=== PATIENT | male | born 1955 | race Caucasian/White ===

== ENCOUNTER 2018-11-29 17:14 | Inpatient (IN) | payer OTHER ==
[~2018-11-29] VITALS: Ht 172.7 cm; Wt 70.8 kg
[2018-11-29 16:55] VITALS: BP 115/61; PULSE 62; RESP 18
[2018-11-29] MEDS ORDERED: MIDODRINE 5 MG TAB PO ONE (17:40)
[2018-11-29] MEDS ORDERED: MAGNESIUM HYDROXIDE 30ML CUP PO PRN (18:30)
[2018-11-29] MEDS ORDERED: ACETAMINOPHEN 325 MG TAB PO PRN (18:30)
[2018-11-29] MEDS ORDERED: LACTULOSE 30ML CUP PO PRN (18:30)
[2018-11-29] MEDS ORDERED: BISACODYL 10 MG SUPP PR PRN (18:30)
[2018-11-29] MEDS ORDERED: ALBUTEROL HFA 8 GM INHALER INH PRN (19:00)
[2018-11-29 20:40] VITALS: BP 81/44; PULSE 62; RESP 18
[2018-11-29 20:45] VITALS: BP 75/32; PULSE 64
[2018-11-29 20:46] VITALS: BP 75/36; PULSE 65
[2018-11-29] MEDS: ATORVASTATIN 20 MG TAB PO SCH (20:55)
[2018-11-29 20:56] VITALS: BP 82/57; PULSE 63
[2018-11-29] MEDS: SENNA TAB PO SCH (21:00)
[2018-11-29] MEDS: DOCUSATE SODIUM 100 MG CAP PO SCH (21:00)
[2018-11-29] MEDS ORDERED: SOD CHLORIDE 0.9% 250 ML IV ONE (21:30)
[2018-11-29 22:40] VITALS: BP 114/57; PULSE 64
--- NOTE | 2018-11-29 22:58 | HP ---
Date/Time of Note Date/Time of Note DATE: 11/29/18 TIME: 22:56 Assessment/Plan VTE Prophylaxis SCD applied (from Nsg): Yes Pharmacological prophylaxis: other Lines/Catheters IV Catheter Type (from Nrsg): Peripheral IV Assessment/Plan Hospital Course Assessment and plan: 63-year-old male past medical history recent stroke on November 24, 2018, results asthma, subsequent hypotension who was transferred over to acute rehab facility after being diagnosed with the stroke. 1. Status post CVA: Again he has subsequent right-sided weakness symptoms. Status post stent and thrombectomy performed for left ICA and MCA blockage. -For now continue medications including aspirin and Plavix -Continue rehab as coordinated by the acute rehab team including any physical therapy, occupational therapy, and other 2. Asthma: No present issues DuoNebs as needed 3. Hypotension: This appeared to occur after the stroke 3 days ago -Monitor for now, continue Midodrin HPI/ROS Admit Date/Time Admit Date/Time Nov 29, 2018 at 17:21 Hx of Present Illness 63-year-old male past medical history recent stroke on November 24, 2018, results asthma, subsequent hypotension who was transferred over to acute rehab facility after being diagnosed with a stroke as mentioned above. Patient has subsequent right-sided weakness symptoms right facial droop and upon admission on November 24 at the outside hospital had status post stent and thrombectomy performed for blockage found in the left ICA and MCA. Presently denies any upper or lower GI bleeding, nausea vomiting, fever chills, diarrhea constipation, chest pain or shortness of breath. PMH/Family/Social Past Medical History Medications Current Medications Docusate Sodium (Colace) 100 mg BID PO ; Start 11/29/18 at 21:00 Senna (Senokot) 1 tab HS PO ; Start 11/29/18 at 21:00 Magnesium Hydroxide (Milk Of Mag) 30 ml BID PRN PO CONSTIPATION; Start 11/29/18 at 18:30 Lactulose (Enulose) 20 gm DAILY PRN PO CONSTIPATION; Start 11/29/18 at 18:30 Bisacodyl (Dulcolax Supp) 10 mg DAILY PRN [place] CONSTIPATION; Start 11/29/18 at 18:30 Acetaminophen (Tylenol Tab) 650 mg Q4H PRN PO PAIN; Start 11/29/18 at 18:30 Aspirin (Aspirin) 325 mg DAILY PO ; Start 11/30/18 at 09:00 Atorvastatin Calcium (Lipitor) 40 mg HS PO Last administered on 11/29/18at 20:55; Admin Dose 40 MG; Start 11/29/18 at 21:00 Clopidogrel Bisulfate (plaVIX) 75 mg DAILY PO ; Start 11/30/18 at 09:00 Midodrine (Proamatine) 10 mg TID@09,13,17 PO ; Start 11/30/18 at 09:00 Albuterol (Ventolin Hfa) 1 puff ONCE PRN INH WHEEZING; Start 11/29/18 at 19:00 Coded Allergies: ibuprofen (Verified Allergy, Unknown, 11/29/18) Exam/Review of Systems Vital Signs Vitals Vital Signs Date Temp Pulse Resp B/P (MAP) Pulse Ox O2 O2 Flow FiO2 Time Delivery Rate 11/29/18 98.5 62 18 115/61 96 Room Air 16:55 (79) Exam Exam Gen: Lying in bed, no acute distress Head: Atraumatic. Eyes: Normal Conjunctiva. ENT: Normal External Ears, Nose and Mouth. Neck: Full range of motion. No meningismus. Resp: Clear to auscultation bilaterally. Cardio: Regular rate and rhythm. Abd: Soft, nondistended, normal bowel sounds, non tender. Ext: No lower extremity edema bilaterally Neuro: Some right-sided weakness CALISTA ADEN Nov 29, 2018 22:58
[2018-11-30 02:00] VITALS: BP 113/56; PULSE 59; RESP 18
[2018-11-30] MEDS ORDERED: ALBUTEROL/IPRATROPIUM (NEB) 3 ML AMP HHN PRN (06:30)
[2018-11-30 08:00] VITALS: BP 99/66; PULSE 73; RESP 20
[2018-11-30] MEDS: ASPIRIN 325 MG TAB PO SCH (09:20)
[2018-11-30] MEDS: DOCUSATE SODIUM 100 MG CAP PO SCH ×2 (09:21→21:00)
[2018-11-30] MEDS: MIDODRINE 5 MG TAB PO SCH ×3 (09:21→16:50)
[2018-11-30] MEDS: CLOPIDOGREL 75 MG TAB PO SCH (09:21)
--- NOTE | 2018-11-30 12:51 | CONS ---
DATE OF ADMISSION: 11/29/2018 DATE OF CONSULTATION: 11/30/2018 REHABILITATION POST-ADMISSION PHYSICIAN EVALUATION REHABILITATION IMPAIRMENT CATEGORY: Left MCA infarct cerebrovascular accident with right-sided weakn ess. ACTIVE COMORBIDITIES: 1. Hypotension. 2. Sinus bradycardia. 3. Left carotid stenosis. 4. Asthma. 5. Dysphagia. 6. Impairments in self-care, mobility and cognition. HISTORY OF PRESENT ILLNESS: The patient is a pleasant 63-year-old right-handed gentleman who present ed to [facility] with right-sided weakness. The patient was noted to have a left ICA stenos is and MCA occlusion, but was outside of the tPA window. The patient did undergo attempted thrombect reyes. The patient did receive stent placement. The patient's hospital course has been notable for hy potension, sinus bradycardia, and bibasilar atelectasis. The patient was also noted to have signific ant dysphagia. The patient has been placed on midodrine and had been followed closely by cardiology. The patient has been cleared to transfer to the rehabilitation unit for comprehensive interdiscipli nary rehab care. FUNCTIONAL HISTORY: Prior to recent events, he was independent in self-care tasks and mobility. Cur rently, he requires maximal to moderate assist for self-care and mobility tasks. I have reviewed the preadmission screen and patient's current functional status is consistent with the preadmission scre en. FAMILY AND SOCIAL HISTORY: The patient reports living at home with significant other and hopes to re turn there upon discharge. PAST MEDICAL HISTORY: 1. Asthma. 2. History of inguinal hernia. 3. Tonsillectomy. CURRENT MEDICATIONS: 1. Aspirin 325 mg p.o. daily. 2. Atorvastatin 20 mg p.o. daily. 3. Plavix 75 mg p.o. daily. 4. Midodrine 10 mg p.o. t.i.d. 5. Albuterol inhaler. ALLERGIES: IBUPROFEN. PHYSICAL EXAMINATION: VITAL SIGNS: He is currently afebrile with stable vital signs. HEENT: The extraocular motions appear intact. Oropharynx is clear. Patient with decreased nasolabi al fold. LUNGS: Clear anteriorly. CARDIAC: S1, S2. ABDOMEN: Soft, nontender, positive bowel sounds. NEUROLOGIC: He is awake and alert. He is oriented to person and hospital. He will follow simple 1- step commands. He has impaired short-term memory. He demonstrates good strength in the left upper a nd lower extremity. He has 3- strength in the right upper extremity. He has antigravity strength in the right lower extremity. PLAN: The patient has been admitted for comprehensive interdisciplinary acute rehab and is anticipat ed to tolerate 3 hours of daily therapy in divided doses for at least 5/7 days a week. The treatment plan will include: 1. Physical therapy to focus on bed mobility, transfers, and household ambulation with the goal of h aving the patient reach a standby assist level. 2. Occupational therapy to focus on hygiene, grooming, dressing, bathing, and toileting activities w ith the goal of having the patient reach a standby assist level. 3. Rehabilitation nursing for carryover of therapeutic interventions, the goal of continent of bowel and bladder, the goal of patient education with regard to the aforementioned issues. 4. Neuropsychology for full cognitive assessment and oversight of cognitive program. 5. Speech therapy for full cognitive assessment and retraining in addition to dysphagia assessment a nd training with the goal of having the patient return to baseline cognition and meet nutritional nee ds by mouth on regular diet. ESTIMATED LENGTH OF STAY: 14 days. DISPOSITION GOAL: Home with significant other. REHABILITATION BARRIER: Weakness. INTERVENTION FOR BARRIER: Interdisciplinary approach. As a board certified clinical rehabilitation liaison in physical medicine and rehabilitation, I attest that this patient qualifies for an interdisciplinary acute rehabilitation unit stay and is best managed a t this level of care. The patient is anticipated to make reasonable goals in a reasonable period of time. After a thorough review of his medical records and a full physical examination. I do believe that this patient meets criteria for acute rehabilitation unit level of care under [facility] guidelines. Dictated By: MICHAEL JENNINGS/LATOYA Conf#: [id number] DID#: [id number] CC: LISANDRO JUNG MD;*EndCC*
--- NOTE | 2018-11-30 13:37 | PN ---
Date/Time of Note Date/Time of Note DATE: 11/30/18 TIME: 13:36 Assessment/Plan VTE Prophylaxis Risk score (from [facility])>0 risk: 3 SCD applied (from [facility]): Yes Pharmacological prophylaxis: heparin Lines/Catheters IV Catheter Type (from [facility]): Peripheral IV Urinary Cath still in place: No Assessment/Plan Problems: (1) Cerebrovascular accident involving left middle cerebral artery territory Status: Acute Comment: Stable at this time and progressing with rehabilitation. Regarding his lower blood pressure I doubt that there is any reason for pill check to make sure we do not have adrenal insufficiency (2) Hyperlipidemia Status: Chronic Comment: On a statin drug at this time. Qualifiers: Hyperlipidemia type: pure hypercholesterolemia Qualified Codes: E78.00 - Pure hypercholesterolemia, unspecified (3) Asthma, moderate persistent Status: Chronic Comment: Noted. Qualifiers: Asthma complication type: uncomplicated Qualified Codes: J45.40 - Moderate persistent asthma, uncomplicated Result Diagram: 11/30/18 0707 11/30/18 0707 Results 24hrs Laboratory Tests Test 11/29/18 17:45 11/30/18 07:07 Urine Color YELLOW Urine Clarity CLEAR Urine pH 7.0 Urine Specific [place] 1.010 Urine Ketones NEGATIVE Urine Nitrite NEGATIVE Urine Bilirubin NEGATIVE Urine Urobilinogen NEGATIVE Urine Leukocyte Esterase NEGATIVE Urine Hemoglobin NEGATIVE Urine Glucose NEGATIVE Urine Total Protein NEGATIVE White Blood Count 7.3 Red Blood Count 3.98 L Hemoglobin 12.2 L Hematocrit 36.5 L Mean Corpuscular Volume 91.7 Mean Corpuscular Hemoglobin 30.7 Mean Corpuscular Hemoglobin Concent 33.4 Red Cell Distribution Width 12.1 Platelet Count 256 Mean Platelet Volume 10.3 Immature Granulocytes % 0.500 H Neutrophils % 68.6 Lymphocytes % 15.3 Monocytes % 10.8 Eosinophils % 4.1 Basophils % 0.7 Nucleated Red Blood Cells % 0.0 Immature Granulocytes # 0.040 H Neutrophils # 5.0 Lymphocytes # 1.1 Monocytes # 0.8 Eosinophils # 0.3 Basophils # 0.1 Nucleated Red Blood Cells # 0.0 Sodium Level 143 Potassium Level 4.1 Chloride Level 109 Carbon Dioxide Level 27 Anion Gap 7 Blood Urea Nitrogen 16 Creatinine 0.93 Est Glomerular Filtrat Rate mL/min > 60 Glucose Level 94 Calcium Level 8.7 Total Bilirubin 0.7 Direct Bilirubin 0.00 Indirect Bilirubin 0.7 Aspartate Amino Transf (AST/SGOT) 20 Alanine Aminotransferase (ALT/SGPT) 23 Alkaline Phosphatase 33 L Total Protein 6.2 Albumin 3.3 Globulin 2.90 Albumin/Globulin Ratio 1.13 Subjective 24 Hr Interval Summary Free Text/Dictation Patient reports he is doing well and has no respiratory issues. Please note he states that regarding his pulmonary issues he had not been on steroids or prednisone prior to his admissions Constitutional: no complaints Respiratory: no complaints Cardiovascular: no complaints Gastrointestinal: no complaints Exam/Review of Systems Exam Vitals Vital Signs Date Temp Pulse Resp B/P (MAP) Pulse Ox O2 O2 Flow FiO2 Time Delivery Rate 11/30/18 98.2 59 18 113/56 96 Room Air 02:00 (75) Intake and Output 11/29/18 11/29/18 11/30/18 1515:00 23:00 07:00 IntakeIntake Total 300 ml 350 ml OutputOutput Total 350 ml 450 ml BalanceBalance -50 ml -100 ml Constitutional: alert, oriented Respiratory: clear to auscultation, normal air movement Cardiovascular: regular rate and rhythm, nl pulses Gastrointestinal: soft, nl liver, spleen, non-tender Neurological: other (Right-sided weakness approximately 4+ out of 5) Results Results 24hrs Laboratory Tests Test 11/29/18 17:45 11/30/18 07:07 Urine Color YELLOW Urine Clarity CLEAR Urine pH 7.0 Urine Specific [place] 1.010 Urine Ketones NEGATIVE Urine Nitrite NEGATIVE Urine Bilirubin NEGATIVE Urine Urobilinogen NEGATIVE Urine Leukocyte Esterase NEGATIVE Urine Hemoglobin NEGATIVE Urine Glucose NEGATIVE Urine Total Protein NEGATIVE White Blood Count 7.3 Red Blood Count 3.98 L Hemoglobin 12.2 L Hematocrit 36.5 L Mean Corpuscular Volume 91.7 Mean Corpuscular Hemoglobin 30.7 Mean Corpuscular Hemoglobin Concent 33.4 Red Cell Distribution Width 12.1 Platelet Count 256 Mean Platelet Volume 10.3 Immature Granulocytes % 0.500 H Neutrophils % 68.6 Lymphocytes % 15.3 Monocytes % 10.8 Eosinophils % 4.1 Basophils % 0.7 Nucleated Red Blood Cells % 0.0 Immature Granulocytes # 0.040 H Neutrophils # 5.0 Lymphocytes # 1.1 Monocytes # 0.8 Eosinophils # 0.3 Basophils # 0.1 Nucleated Red Blood Cells # 0.0 Sodium Level 143 Potassium Level 4.1 Chloride Level 109 Carbon Dioxide Level 27 Anion Gap 7 Blood Urea Nitrogen 16 Creatinine 0.93 Est Glomerular Filtrat Rate mL/min > 60 Glucose Level 94 Calcium Level 8.7 Total Bilirubin 0.7 Direct Bilirubin 0.00 Indirect Bilirubin 0.7 Aspartate Amino Transf (AST/SGOT) 20 Alanine Aminotransferase (ALT/SGPT) 23 Alkaline Phosphatase 33 L Total Protein 6.2 Albumin 3.3 Globulin 2.90 Albumin/Globulin Ratio 1.13 Medications Medication Current Medications Docusate Sodium (Colace) 100 mg BID PO Last administered on 11/30/18 09:21; Admin Dose 100 MG; Start 11/29/18 at 21:00 Senna (Senokot) 1 tab HS PO ; Start 11/29/18 at 21:00 Magnesium Hydroxide (Milk Of Mag) 30 ml BID PRN PO CONSTIPATION; Start 11/29/18 at 18:30 Lactulose (Enulose) 20 gm DAILY PRN PO CONSTIPATION; Start 11/29/18 at 18:30 Bisacodyl (Dulcolax Supp) 10 mg DAILY PRN [place] CONSTIPATION; Start 11/29/18 at 18:30 Acetaminophen (Tylenol Tab) 650 mg Q4H PRN PO PAIN; Start 11/29/18 at 18:30 Aspirin (Aspirin) 325 mg DAILY PO Last administered on 11/30/18 09:20; Admin Dose 325 MG; Start 11/30/18 at 09:00 Atorvastatin Calcium (Lipitor) 40 mg HS PO Last administered on 11/29/18 20:55; Admin Dose 40 MG; Start 11/29/18 at 21:00 Clopidogrel Bisulfate (plaVIX) 75 mg DAILY PO Last administered on 11/30/18 09:21; Admin Dose 75 MG; Start 11/30/18 at 09:00 Midodrine (Proamatine) 10 mg TID@,,17 PO Last administered on 11/30/18 12:56; Admin Dose 10 MG; Start 11/30/18 at 09:00 Albuterol (Ventolin Hfa) 1 puff ONCE PRN INH WHEEZING; Start 11/29/18 at 19:00 Albuterol/ Ipratropium (Duoneb) 3 ml Q4H RESP THERAPY PRN HHN SHORTNESS OF BREATH; Start 11/30/18 at 06:30 NIKA GAN MD Nov 30, 2018 13:37
[2018-11-30 14:00] VITALS: BP 132/62; PULSE 52; RESP 18
[2018-11-30 20:00] VITALS: BP 120/62; PULSE 51; RESP 18
[2018-11-30] MEDS: ATORVASTATIN 20 MG TAB PO SCH (21:00)
[2018-11-30] MEDS: SENNA TAB PO SCH (21:00)
[2018-12-01 02:00] VITALS: BP 89/54; PULSE 73; RESP 18
[2018-12-01 08:00] VITALS: BP 108/53; PULSE 65; RESP 18
[2018-12-01] MEDS: CLOPIDOGREL 75 MG TAB PO SCH (08:40)
[2018-12-01] MEDS: ASPIRIN 325 MG TAB PO SCH (08:40)
[2018-12-01] MEDS: DOCUSATE SODIUM 100 MG CAP PO SCH ×2 (08:40→20:36)
[2018-12-01] MEDS: MIDODRINE 5 MG TAB PO SCH ×3 (08:42→17:25)
--- NOTE | 2018-12-01 13:29 | PN ---
Date/Time of Note Date/Time of Note DATE: 12/01/18 TIME: 13:28 Assessment/Plan VTE Prophylaxis Risk score (from [facility])>0 risk: 7 SCD applied (from [facility]): No SCD contraindicated: low risk/ambulating Pharmacological prophylaxis: heparin Pharm contraindication: low risk/ambulating Lines/Catheters IV Catheter Type (from [facility]): Peripheral IV Urinary Cath still in place: No Assessment/Plan Problems: (1) Cerebrovascular accident involving left middle cerebral artery territory Status: Acute Comment: Continue with rehabilitation protocol and doing okay (2) Enterococcus UTI Onset Date: ~ 11/29/2018 Status: Acute Comment: Initiate antibiotic treatment especially in a male (3) Hyperlipidemia Status: Chronic Comment: On statin therapy Qualifiers: Hyperlipidemia type: pure hypercholesterolemia Qualified Codes: E78.00 - Pure hypercholesterolemia, unspecified (4) Asthma, moderate persistent Status: Chronic Comment: Adequately controlled and compensated Qualifiers: Asthma complication type: uncomplicated Qualified Codes: J45.40 - Moderate persistent asthma, uncomplicated (5) Hepatitis C antibody test positive Onset Date: ~ 11/30/2018 Status: Acute Comment: This is a new finding want to wait for the RNA results. This may very well need treatment Result Diagram: 11/30/18 0707 11/30/18 0707 Subjective 24 Hr Interval Summary Free Text/Dictation Patient reports he is feeling a little bit better Constitutional: no complaints Respiratory: no complaints Cardiovascular: no complaints Gastrointestinal: no complaints Genitourinary: no complaints Neurologic: no complaints (No new complaints) Exam/Review of Systems Exam Vitals Vital Signs Date Temp Pulse Resp B/P (MAP) Pulse Ox O2 O2 Flow FiO2 Time Delivery Rate 12/01/18 98.8 65 18 108/53 97 08:00 (71) 12/01/18 Room Air 02:00 Intake and Output 11/30/18 11/30/18 12/01/18 1515:00 23:00 07:00 IntakeIntake Total 300 ml OutputOutput Total 500 ml 300 ml 550 ml BalanceBalance -200 ml -300 ml -550 ml Constitutional: alert, oriented Respiratory: clear to auscultation, normal air movement Cardiovascular: regular rate and rhythm, nl pulses Gastrointestinal: soft, nl liver, spleen, non-tender Neurological: other (No changes) Medications Medication Current Medications Docusate Sodium (Colace) 100 mg BID PO Last administered on 12/01/18 08:40; Admin Dose 100 MG; Start 11/29/18 at 21:00 Senna (Senokot) 1 tab HS PO ; Start 11/29/18 at 21:00 Magnesium Hydroxide (Milk Of Mag) 30 ml BID PRN PO CONSTIPATION; Start 11/29/18 at 18:30 Lactulose (Enulose) 20 gm DAILY PRN PO CONSTIPATION; Start 11/29/18 at 18:30 Bisacodyl (Dulcolax Supp) [address] [place] CONSTIPATION; Start 11/29/18 at 18:30 Acetaminophen (Tylenol Tab) 650 mg Q4H PRN PO PAIN; Start 11/29/18 at 18:30 Aspirin (Aspirin) 325 mg DAILY PO Last administered on 12/01/18 08:40; Admin Dose 325 MG; Start 11/30/18 at 09:00 Atorvastatin Calcium (Lipitor) 40 mg HS PO Last administered on 11/29/18at 20:55; Admin Dose 40 MG; Start 11/29/18 at 21:00 Clopidogrel Bisulfate (plaVIX) 75 mg DAILY PO Last administered on 12/01/18 08:40; Admin Dose 75 MG; Start 11/30/18 at 09:00 Midodrine (Proamatine) 10 mg TID@,13,17 PO Last administered on 12/01/18 13: 11; Admin Dose 10 MG; Start 11/30/18 at 09:00 Albuterol (Ventolin Hfa) 1 puff ONCE PRN INH WHEEZING; Start 11/29/18 at 19:00 Albuterol/ Ipratropium (Duoneb) 3 ml Q4H RESP THERAPY PRN HHN SHORTNESS OF B REATH; Start 11/30/18 at 06:30 Trimethoprim/ Sulfamethoxazole (Bactrim (Ds)) 1 tab BID PO ; Start 12/01/18 at 13:30; Stop 12/11/18 at 13:29; Status NIKA CASTRO MD Dec 01, 2018 13:29
[2018-12-01] MEDS: TRIMETHOPRIM/SULFAMETHOX (DS) TAB PO SCH ×2 (14:03→20:36)
[2018-12-01 14:14] VITALS: BP 90/52; PULSE 76; RESP 18
[2018-12-01 17:25] VITALS: BP 102/53; PULSE 61
[2018-12-01 20:00] VITALS: BP 120/64; PULSE 60; RESP 18
[2018-12-01] MEDS: SENNA TAB PO SCH (20:36)
[2018-12-01] MEDS: ATORVASTATIN 20 MG TAB PO SCH (20:36)
[2018-12-02 04:00] VITALS: BP 94/57; PULSE 70; RESP 18
[2018-12-02] MEDS: TRIMETHOPRIM/SULFAMETHOX (DS) TAB PO SCH (08:41)
[2018-12-02] MEDS: CLOPIDOGREL 75 MG TAB PO SCH (08:42)
[2018-12-02] MEDS: ASPIRIN 325 MG TAB PO SCH (08:45)
[2018-12-02] MEDS: DOCUSATE SODIUM 100 MG CAP PO SCH ×2 (09:00→21:02)
[2018-12-02] MEDS: MIDODRINE 10 MG TABLET PO SCH ×3 (09:48→17:36)
--- NOTE | 2018-12-02 12:53 | PN ---
Date/Time of Note Date/Time of Note DATE: 12/02/18 TIME: 12:51 Subjective No new complaints Objective Vital Signs Date Temp Pulse Resp B/P (MAP) Pulse Ox O2 O2 Flow FiO2 Time Delivery Rate 12/02/18 98.1 70 18 94/57 (69) 98 Room Air 04:00 Intake and Output 12/01/18 12/01/18 12/02/18 1515:00 23:00 07:00 IntakeIntake Total 200 ml 450 ml 200 ml OutputOutput Total 200 ml 100 ml 300 ml BalanceBalance 0 ml 350 ml -100 ml Exam pulm-cta abd-soft mod transfer Results/Medications Result Diagram: 11/30/1870611/30/1807 Medications Current Medications Docusate Sodium (Colace) 100 mg BID PO Last administered on 12/01/18at 20:36; Admin Dose 100 MG; Start 11/29/18 at 21:00 Senna (Senokot) 1 tab HS PO Last administered on 12/01/18 20:36; Admin Dose 1 TAB; Start 11/29/18 at 21:00 Magnesium Hydroxide (Milk Of Mag) 30 ml BID PRN PO CONSTIPATION; Start 11/29/18 at 18:30 Lactulose (Enulose) 20 gm DAILY PRN PO CONSTIPATION; Start 11/29/18 at 18:30 Bisacodyl (Dulcolax Supp) 10 mg DAILY PRN [place] CONSTIPATION; Start 11/29/18 at 18:30 Acetaminophen (Tylenol Tab) 650 mg Q4H PRN PO PAIN; Start 11/29/18 at 18:30 Aspirin (Aspirin) 325 mg DAILY PO Last administered on 12/02/18at 08:45; Admin Dose 325 MG; Start 11/30/18 at 09:00 Atorvastatin Calcium (Lipitor) 40 mg HS PO Last administered on 12/01/18at 20:36; Admin Dose 40 MG; Start 11/29/18 at 21:00 Clopidogrel Bisulfate (plaVIX) 75 mg DAILY PO Last administered on 12/02/18at 08:42; Admin Dose 75 MG; Start 11/30/18 at 09:00 Albuterol (Ventolin Hfa) 1 puff ONCE PRN INH WHEEZING; Start 11/29/18 at 19:00 Albuterol/ Ipratropium (Duoneb) 3 ml Q4H RESP THERAPY PRN HHN SHORTNESS OF BREATH; Start 11/30/18 at 06:30 Trimethoprim/ Sulfamethoxazole (Bactrim (Ds)) 1 tab BID PO Last administered on 12/02/18at 08:41; Admin Dose 1 TAB; Start 12/01/18 at 13:30; Stop 12/11/18 at 13:29 Midodrine (Midodrine) 10 mg TID@09,13,17 PO Last administered on 12/02/18at 09:48; Admin Dose 10 MG; Start 12/02/18 at 09:00 Assessment/Plan Additional Assessment/Plan Rehab- Left MCA infarct cerebrovascular accident with right-sided weakness. Continue interdisciplinary rehab Hypotension- continue current med and abdominal binder and brenda hose for OOB Sinus bradycardia. Left carotid stenosis. Asthma. Dysphagia- speech therapy MICHAEL VARGAS MD Dec 02, 2018 12:53
[2018-12-02 13:47] VITALS: BP 109/57; PULSE 55; RESP 16
[2018-12-02 14:15] VITALS: BP_SYST 106; BP_SYST 81; BP_DIAS 47; BP_DIAS 63; PULSE 68
[2018-12-02] MEDS ORDERED: SOD CHLORIDE 0.9% 500 ML IV ONE (15:00)
--- NOTE | 2018-12-02 15:07 | PN ---
Date/Time of Note Date/Time of Note DATE: 12/02/18 TIME: 15:07 Assessment/Plan VTE Prophylaxis Risk score (from N[facility])>0 risk: 5 SCD applied (from [facility] No SCD contraindicated: other Pharmacological prophylaxis: LMWH Pharm contraindication: other (asa/plavix) Lines/Catheters IV Catheter Type (from [facility]): Peripheral IV Urinary Cath still in place: No Assessment/Plan Hospital Course SUBJECTIVE: Patient with hypotensive episodes. He is also having difficulty urinating now. Complaining of suprapubic tenderness and pain. No fevers. OBJECTIVE: Vital signs-see below PHYSICAL EXAM: Constitutional: Adequately built,not in acute distress. HEENT: Head atraumatic and normocephalic. Eyes: Extraocular muscles intact. Anicteric sclerae. Pupils equal bilaterally, reactive to light. NECK: Supple without lymph node. CHEST: Clear and good breath sounds equally. No wheezing. No rhonchi. HEART: S1, S2. Regular rate and rhythm. ABDOMEN: Slight tenderness to suprapubic area. Soft/non tender with no rebound tenderness. Bowel sounds were present. EXTREMITIES: No cyanosis, clubbing or edema. NEUROLOGIC: Alert and oriented x3. No focal deficit. No sensory deficit. PSYCHOSOCIAL: No signs of depression. INTEGUMENTARY: No open wounds. ASSESSMENT AND PLAN:63-year-old male past medical history recent stroke on November 24, 2018 transferred to acute rehab for rehabilitation. Status post CVA -pt w/ t-sided weakness symptoms. -Status post stent and thrombectomy performed for left ICA and MCA blockage. -cont. DAPT/statin -Continue rehab as coordinated by the acute rehab team including any physical therapy, occupational therapy, and other Orthostatic hypotension -We will give a fluid bolus -Avoid antihypertensives -cont. midodrine Urinary tract infection -Patient also with urinary retention. I have ordered a bladder scan with in and out catheterization depending residual amount. -Defer Flomax at this time secondary to orthostasis -Change Bactrim to Cipro based on sensitivity Asthma -No present issues DuoNebs as needed History of hepatitis C -Outpatient follow-up DVT prophylaxis: Lovenox Patient with Dr. Winslow Result Diagram: 11/30/1870611/30/18 0707 Exam/Review of Systems Exam Vitals Vital Signs Date Temp Pulse Resp B/P (MAP) Pulse Ox O2 O2 Flow FiO2 Time Delivery Rate 12/02/18 68 106/63 14:15 (77) 81/47 (58) 12/02/18 97.9 16 95 Room Air 13:47 Intake and Output 12/01/18 12/01/18 12/02/18 1515:00 23:00 07:00 IntakeIntake Total 200 ml 450 ml 200 ml OutputOutput Total 200 ml 100 ml 300 ml BalanceBalance 0 ml 350 ml -100 ml Medications Medication Current Medications Docusate Sodium (Colace) 100 mg BID PO Last administered on 12/01/18 20:36; Admin Dose 100 MG; Start 11/29/18 at 21:00 Senna (Senokot) 1 tab HS PO Last administered on 12/01/18 20:36; Admin Dose 1 TAB; Start 11/29/18 at 21:00 Magnesium Hydroxide (Milk Of Mag) 30 ml BID PRN PO CONSTIPATION; Start 11/29/18 at 18:30 Lactulose (Enulose) 20 gm DAILY PRN PO CONSTIPATION; Start 11/29/18 at 18:30 Bisacodyl (Dulcolax Supp) 10 mg DAILY PRN [place] CONSTIPATION; Start 11/29/18 at 18:30 Acetaminophen (Tylenol Tab) 650 mg Q4H PRN PO PAIN; Start 11/29/18 at 18:30 Aspirin (Aspirin) 325 mg DAILY PO Last administered on 12/02/18at 08:45; Admin Dose 325 MG; Start 11/30/18 at 09:00 Atorvastatin Calcium (Lipitor) 40 mg HS PO Last administered on 12/01/18 20:36; Admin Dose 40 MG; Start 11/29/18 at 21:00 Clopidogrel Bisulfate (plaVIX) 75 mg DAILY PO Last administered on 12/02/18 08:42; Admin Dose 75 MG; Start 11/30/18 at 09:00 Albuterol (Ventolin Hfa) 1 puff ONCE PRN INH WHEEZING; Start 11/29/18 at 19:00 Albuterol/ Ipratropium (Duoneb) 3 ml Q4H RESP THERAPY PRN HHN SHORTNESS OF BREATH; Start 11/30/18 at 06:30 Trimethoprim/ Sulfamethoxazole (Bactrim (Ds)) 1 tab BID PO Last administered on 12/02/18at 08:41; Admin Dose 1 TAB; Start 12/01/18 at 13:30; Stop 12/11/18 at 13:29 Midodrine (Midodrine) 10 mg TID@,,17 PO Last administered on 12/02/18at 13:46; Admin Dose 10 MG; Start 12/02/18 at 09:00 AC RAE NP Dec 02, 2018 15:07
[2018-12-02 17:41] VITALS: BP 126/65; PULSE 53
[2018-12-02] MEDS: CIPROFLOXACIN 500 MG TAB PO SCH (18:45)
[2018-12-02 20:58] VITALS: BP 145/73; PULSE 52; RESP 18
[2018-12-02] MEDS: ATORVASTATIN 20 MG TAB PO SCH (21:00)
[2018-12-02] MEDS: SENNA TAB PO SCH (21:02)
[2018-12-03 04:00] VITALS: BP 91/57; PULSE 66; RESP 18
[2018-12-03] MEDS: CIPROFLOXACIN 500 MG TAB PO SCH ×2 (05:37→18:49)
[2018-12-03] MEDS: ASPIRIN 325 MG TAB PO SCH (08:17)
[2018-12-03] MEDS: CLOPIDOGREL 75 MG TAB PO SCH (08:18)
[2018-12-03] MEDS: MIDODRINE 10 MG TABLET PO SCH ×2 (08:18→13:00)
[2018-12-03 08:23] VITALS: BP 94/52; PULSE 58; RESP 17
[2018-12-03] MEDS: ENOXAPARIN 40 MG/0.4 ML SYG SC SCH (08:35)
[2018-12-03] MEDS: DOCUSATE SODIUM 100 MG CAP PO SCH ×2 (08:35→21:00)
--- NOTE | 2018-12-03 12:29 | PN ---
Date/Time of Note Date/Time of Note DATE: 12/03/18 TIME: 12:29 Subjective Patient working well with therapists Objective Vital Signs Date Temp Pulse Resp B/P (MAP) Pulse Ox O2 O2 Flow FiO2 Time Delivery Rate 12/03/18 98.4 58 17 94/52 (66) 96 Room Air 08:23 Intake and Output 12/02/18 12/02/18 12/03/18 1515:00 23:00 07:00 IntakeIntake Total 300 ml 800 ml 300 ml OutputOutput Total 500 ml 900 ml 500 ml BalanceBalance -200 ml -100 ml -200 ml Exam pulm-cta abd-soft min ambulation Results/Medications Result Diagram: 11/30/1870611/30/18 07 Medications Current Medications Docusate Sodium (Colace) 100 mg BID PO Last administered on 12/02/18at 21:02; Admin Dose 100 MG; Start 11/29/18 at 21:00 Senna (Senokot) 1 tab HS PO Last administered on 12/02/18at 21:02; Admin Dose 1 TAB; Start 11/29/18 at 21:00 Magnesium Hydroxide (Milk Of Mag) 30 ml BID PRN PO CONSTIPATION; Start 11/29/18 at 18:30 Lactulose (Enulose) 20 gm DAILY PRN PO CONSTIPATION; Start 11/29/18 at 18:30 Bisacodyl (Dulcolax Supp) 10 mg DAILY PRN [place] CONSTIPATION; Start 11/29/18 at 18:30 Acetaminophen (Tylenol Tab) 650 mg Q4H PRN PO PAIN; Start 11/29/18 at 18:30 Aspirin (Aspirin) 325 mg DAILY PO Last administered on 12/03/18at 08:17; Admin Dose 325 MG; Start 11/30/18 at 09:00 Atorvastatin Calcium (Lipitor) 40 mg HS PO Last administered on 12/02/18at 21:00; Admin Dose 40 MG; Start 11/29/18 at 21:00 Clopidogrel Bisulfate (plaVIX) 75 mg DAILY PO Last administered on 12/03/18at 08:18; Admin Dose 75 MG; Start 11/30/18 at 09:00 Albuterol (Ventolin Hfa) 1 puff ONCE PRN INH WHEEZING; Start 11/29/18 at 19:00 Albuterol/ Ipratropium (Duoneb) 3 ml Q4H RESP THERAPY PRN HHN SHORTNESS OF BREATH; Start 11/30/18 at 06:30 Midodrine (Midodrine) 10 mg TID@,13,17 PO Last administered on 12/03/18at 08:18; Admin Dose 10 MG; Start 12/02/18 at 09:00 Ciprofloxacin (Cipro) 500 mg BID@,18 PO Last administered on 12/03/18at 05:37; Admin Dose 500 MG; Start 12/02/18 at 18:00 Enoxaparin Sodium (Lovenox) 40 mg DAILY SC ; Start 12/03/18 at 09:00 Assessment/Plan Additional Assessment/Plan Rehab- Left MCA infarct cerebrovascular accident with right-sided weakness. Continue interdisciplinary rehab. Overall improving Hypotension- continue current med and abdominal binder and brenda hose for OOB. Monitor closely Sinus bradycardia. Left carotid stenosis. Asthma. Dysphagia- speech therapy MICHAEL VARGAS MD Dec 03, 2018 12:29
[2018-12-03 13:49] VITALS: BP 142/61; PULSE 64; RESP 17
--- NOTE | 2018-12-03 14:04 | PN ---
Date/Time of Note Date/Time of Note DATE: 12/03/18 TIME: 14:00 Assessment/Plan VTE Prophylaxis Risk score (from Ns)>0 risk: 6 SCD applied (from Ns): No SCD contraindicated: low risk/ambulating Pharmacological prophylaxis: LMWH Lines/Catheters [facility] Peripheral IV Urinary Cath still in place: No Assessment/Plan Hospital Course SUBJECTIVE: Patient with improved blood pressure. No further urinary discomfort or retention. Voiding well. OBJECTIVE: Vital signs-see below PHYSICAL EXAM: Constitutional: Adequately built,not in acute distress. HEENT: Head atraumatic and normocephalic. Eyes: Extraocular muscles intact. Anicteric sclerae. Pupils equal bilaterally, reactive to light. NECK: Supple without lymph node. CHEST: Clear and good breath sounds equally. No wheezing. No rhonchi. HEART: S1, S2. Regular rate and rhythm. ABDOMEN: Slight tenderness to suprapubic area. Soft/non tender with no rebound tenderness. Bowel sounds were present. EXTREMITIES: No cyanosis, clubbing or edema. NEUROLOGIC: Alert and oriented x3. No focal deficit. No sensory deficit. PSYCHOSOCIAL: No signs of depression. INTEGUMENTARY: No open wounds. ASSESSMENT AND PLAN:63-year-old male past medical history recent stroke on November 24, 2018 transferred to acute rehab for rehabilitation. Status post CVA -pt w/ Rt-sided weakness -Status post stent and thrombectomy performed for left ICA and MCA blockage. -cont. DAPT/statin -Continue rehab as coordinated by the acute rehab team including any physical therapy, occupational therapy, and other Orthostatic hypotension -Improved -Avoid antihypertensives -PRN midodrine Urinary tract infection -Continue Cipro Asthma -No present issues DuoNebs as needed Untreated hepatitis C -Outpatient GI follow-up DVT prophylaxis: Lovenox Patient with Dr. Winslow Result Diagram: 11/30/18 0707 11/30/18 0707 Exam/Review of Systems Exam Vitals Vital Signs Date Temp Pulse Resp B/P (MAP) Pulse Ox O2 O2 Flow FiO2 Time Delivery Rate 12/03/18 97.9 64 17 142/61 97 Room Air 13:49 (88) Intake and Output 12/02/18 12/02/18 12/03/18 1515:00 23:00 07:00 IntakeIntake Total 300 ml 800 ml 300 ml OutputOutput Total 500 ml 900 ml 500 ml BalanceBalance -200 ml -100 ml -200 ml Medications Medication Current Medications Docusate Sodium (Colace) 100 mg BID PO Last administered on 12/02/18 21:02; Admin Dose 100 MG; Start 11/29/18 at 21:00 Senna (Senokot) 1 tab HS PO Last administered on 12/02/18 21:02; Admin Dose 1 TAB; Start 11/29/18 at 21:00 Magnesium Hydroxide (Milk Of Mag) 30 ml BID PRN PO CONSTIPATION; Start 11/29/18 at 18:30 Lactulose (Enulose) 20 gm DAILY PRN PO CONSTIPATION; Start 11/29/18 at 18:30 Bisacodyl (Dulcolax Supp) 10 mg DAILY PRN [place] CONSTIPATION; Start 11/29/18 at 18:30 Acetaminophen (Tylenol Tab) 650 mg Q4H PRN PO PAIN; Start 11/29/18 at 18:30 Aspirin (Aspirin) 325 mg DAILY PO Last administered on 12/03/18at 08:17; Admin Dose 325 MG; Start 11/30/18 at 09:00 Atorvastatin Calcium (Lipitor) 40 mg HS PO Last administered on 12/02/18 21:00; Admin Dose 40 MG; Start 11/29/18 at 21:00 Clopidogrel Bisulfate (plaVIX) 75 mg DAILY PO Last administered on 12/03/18at 08:18; Admin Dose 75 MG; Start 11/30/18 at 09:00 Albuterol (Ventolin Hfa) 1 puff ONCE PRN INH WHEEZING; Start 11/29/18 at 19:00 Albuterol/ Ipratropium (Duoneb) 3 ml Q4H RESP THERAPY PRN HHN SHORTNESS OF BREATH; Start 11/30/18 at 06:30 Midodrine (Midodrine) 10 mg TID@,, PO Last administered on 12/03/18at 08:18; Admin Dose 10 MG; Start 12/02/18 at 09:00 Ciprofloxacin (Cipro) 500 mg BID@18 PO Last administered on 12/03/18at 05:37; Admin Dose 500 MG; Start 12/02/18 at 18:00 Enoxaparin Sodium (Lovenox) 40 mg DAILY SC ; Start 12/03/18 at 09:00 AC RAE NP Dec 03, 2018 14:04
[2018-12-03] MEDS ORDERED: MIDODRINE 5 MG TAB PO PRN (14:30)
[2018-12-03] MEDS: ATORVASTATIN 20 MG TAB PO SCH (21:00)
[2018-12-03] MEDS: SENNA TAB PO SCH (21:00)
[2018-12-03 23:01] VITALS: BP 93/52; PULSE 63; RESP 18
[2018-12-04 02:00] VITALS: BP 96/57; PULSE 65; RESP 18
[2018-12-04] MEDS: CIPROFLOXACIN 500 MG TAB PO SCH ×2 (06:16→18:00)
[2018-12-04 08:02] VITALS: BP 90/51; PULSE 67; RESP 18
[2018-12-04] MEDS: CLOPIDOGREL 75 MG TAB PO SCH (08:20)
[2018-12-04] MEDS: ASPIRIN 325 MG TAB PO SCH (08:20)
[2018-12-04] MEDS ORDERED: MIDODRINE 10 MG TABLET PO PRN (08:30)
[2018-12-04] MEDS: ENOXAPARIN 40 MG/0.4 ML SYG SC SCH (08:50)
[2018-12-04] MEDS: DOCUSATE SODIUM 100 MG CAP PO SCH ×3 (08:50→21:00)
--- NOTE | 2018-12-04 12:21 | PN ---
Date/Time of Note Date/Time of Note DATE: 12/04/18 TIME: 12:20 Subjective No new complaints Objective Vital Signs Date Temp Pulse Resp B/P (MAP) Pulse Ox O2 O2 Flow FiO2 Time Delivery Rate 12/04/18 98.4 67 18 90/51 (64) 98 Room Air 08:02 Intake and Output 12/03/18 12/03/18 12/04/18 1515:00 23:00 07:00 IntakeIntake Total 240 ml OutputOutput Total 300 ml 350 ml BalanceBalance 240 ml -300 ml -350 ml Exam pulm-cta abd-soft min ambulation Results/Medications Result Diagram: 11/30/18 0707 11/30/18 0707 Medications Current Medications Docusate Sodium (Colace) 100 mg BID PO Last administered on 12/02/18 21:02; Admin Dose 100 MG; Start 11/29/18 at 21:00 Senna (Senokot) 1 tab HS PO Last administered on 12/02/18 21:02; Admin Dose 1 TAB; Start 11/29/18 at 21:00 Magnesium Hydroxide (Milk Of Mag) 30 ml BID PRN PO CONSTIPATION; Start 11/29/18 at 18:30 Lactulose (Enulose) 20 gm DAILY PRN PO CONSTIPATION; Start 11/29/18 at 18:30 Bisacodyl (Dulcolax Supp) 10 mg DAILY PRN [place] CONSTIPATION; Start 11/29/18 at 18:30 Acetaminophen (Tylenol Tab) 650 mg Q4H PRN PO PAIN; Start 11/29/18 at 18:30 Aspirin (Aspirin) 325 mg DAILY PO Last administered on 12/04/18at 08:20; Admin Dose 325 MG; Start 11/30/18 at 09:00 Atorvastatin Calcium (Lipitor) 40 mg HS PO Last administered on 12/02/18 21:00; Admin Dose 40 MG; Start 11/29/18 at 21:00 Clopidogrel Bisulfate (plaVIX) 75 mg DAILY PO Last administered on 12/04/18 08:20; Admin Dose 75 MG; Start 11/30/18 at 09:00 Albuterol (Ventolin Hfa) 1 puff ONCE PRN INH WHEEZING; Start 11/29/18 at 19:00 Albuterol/ Ipratropium (Duoneb) 3 ml Q4H RESP THERAPY PRN HHN SHORTNESS OF BREATH; Start 11/30/18 at 06:30 Ciprofloxacin (Cipro) 500 mg BID@06,18 PO Last administered on 12/04/18at 06:16; Admin Dose 500 MG; Start 12/02/18 at 18:00 Enoxaparin Sodium (Lovenox) 40 mg DAILY SC ; Start 12/03/18 at 09:00 Midodrine (Midodrine) 10 mg TID PRN PO for SBP <100; Start 12/04/18 at 08:30 Assessment/Plan Additional Assessment/Plan Rehab- Left MCA infarct cerebrovascular accident with right-sided weakness. Continue rehab, steady progress Hypotension- continue current med and abdominal binder and brenda hose for OOB Sinus bradycardia. Left carotid stenosis. Asthma. Dysphagia- speech therapy MICHAEL VARGAS MD Dec 04, 2018 12:21
[2018-12-04 14:00] VITALS: BP 116/67; RESP 18
--- NOTE | 2018-12-04 14:58 | PN ---
Date/Time of Note Date/Time of Note DATE: 12/04/18 TIME: 14:55 Assessment/Plan VTE Prophylaxis Risk score (from Ns)>0 risk: 3 SCD applied (from [facility] No SCD contraindicated: other Pharmacological prophylaxis: LMWH Lines/Catheters [facility] C[facility] Type (from [facility]): Peripheral IV Urinary Cath still in place: No Assessment/Plan Hospital Course SUBJECTIVE: No acute distress. participates w/PT. OBJECTIVE: Vital signs-see below PHYSICAL EXAM: Constitutional: Adequately built,not in acute distress. HEENT: Head atraumatic and normocephalic. Eyes: Extraocular muscles intact. Anicteric sclerae. Pupils equal bilaterally, reactive to light. NECK: Supple without lymph node. CHEST: Clear and good breath sounds equally. No wheezing. No rhonchi. HEART: S1, S2. Regular rate and rhythm. ABDOMEN: Slight tenderness to suprapubic area. Soft/non tender with no rebound tenderness. Bowel sounds were present. EXTREMITIES: No cyanosis, clubbing or edema. NEUROLOGIC: Alert and oriented x3. No focal deficit. No sensory deficit. PSYCHOSOCIAL: No signs of depression. INTEGUMENTARY: No open wounds. ASSESSMENT AND PLAN:63-year-old male past medical history recent stroke on November 24, 2018 transferred to acute rehab for rehabilitation. Status post CVA -pt w/ Rt-sided weakness -Status post stent and thrombectomy performed for left ICA and MCA blockage. -cont. DAPT/statin -Continue rehab as coordinated by the acute rehab team including any physical therapy, occupational therapy, and other Orthostatic hypotension -Improved -Avoid antihypertensives -PRN midodrine Urinary tract infection -Continue Cipro w/stop date placed Asthma -No present issues -DuoNebs as needed Untreated hepatitis C -Outpatient GI follow-up DVT prophylaxis: Lovenox Patient with Dr. Winslow Result Diagram: 11/30/18 0707 11/30/18 0707 Exam/Review of Systems Exam Vitals Vital Signs Date Temp Pulse Resp B/P (MAP) Pulse Ox O2 O2 Flow FiO2 Time Delivery Rate 12/04/18 98.4 67 18 90/51 (64) 98 Room Air 08:02 Intake and Output 12/03/18 12/03/18 12/04/18 1515:00 23:00 07:00 IntakeIntake Total 240 ml OutputOutput Total 300 ml 350 ml BalanceBalance 240 ml -300 ml -350 ml Medications Medication Current Medications Docusate Sodium (Colace) 100 mg BID PO Last administered on 12/02/18 21:02; Admin Dose 100 MG; Start 11/29/18 at 21:00 Senna (Senokot) 1 tab HS PO Last administered on 12/02/18 21:02; Admin Dose 1 TAB; Start 11/29/18 at 21:00 Magnesium Hydroxide (Milk Of Mag) 30 ml BID PRN PO CONSTIPATION; Start 11/29/18 at 18:30 Lactulose (Enulose) 20 gm DAILY PRN PO CONSTIPATION; Start 11/29/18 at 18:30 Bisacodyl (Dulcolax Supp) 10 mg DAILY PRN [place] CONSTIPATION; Start 11/29/18 at 18:30 Acetaminophen (Tylenol Tab) 650 mg Q4H PRN PO PAIN; Start 11/29/18 at 18:30 Aspirin (Aspirin) 325 mg DAILY PO Last administered on 12/04/18 08:20; Admin Dose 325 MG; Start 11/30/18 at 09:00 Atorvastatin Calcium (Lipitor) 40 mg HS PO Last administered on 12/02/18 21:00; Admin Dose 40 MG; Start 11/29/18 at 21:00 Clopidogrel Bisulfate (plaVIX) 75 mg DAILY PO Last administered on 12/04/18at 08:20; Admin Dose 75 MG; Start 11/30/18 at 09:00 Albuterol (Ventolin Hfa) 1 puff ONCE PRN INH WHEEZING; Start 11/29/18 at 19:00 Albuterol/ Ipratropium (Duoneb) 3 ml Q4H RESP THERAPY PRN HHN SHORTNESS OF BREATH; Start 11/30/18 at 06:30 Ciprofloxacin (Cipro) 500 mg BID@,18 PO Last administered on 12/04/18 06:16; Admin Dose 500 MG; Start 12/02/18 at 18:00 Enoxaparin Sodium (Lovenox) 40 mg DAILY SC ; Start 12/03/18 at 09:00 Midodrine (Midodrine) 10 mg TID PRN PO for SBP <100; Start 12/04/18 at 08:30 AC RAE NP Dec 04, 2018 14:58
[2018-12-04 20:34] VITALS: BP 98/64; PULSE 73; RESP 18
[2018-12-04] MEDS: ATORVASTATIN 20 MG TAB PO SCH ×2 (20:37→21:00)
[2018-12-04] MEDS: SENNA TAB PO SCH ×2 (20:37→21:00)
[2018-12-05 02:00] VITALS: BP 94/51; PULSE 75; RESP 18
[2018-12-05 07:00] VITALS: BP 100/56; PULSE 67; RESP 18
[2018-12-05] MEDS: ASPIRIN 325 MG TAB PO SCH (08:19)
[2018-12-05] MEDS: CLOPIDOGREL 75 MG TAB PO SCH (08:19)
[2018-12-05] MEDS: DOCUSATE SODIUM 100 MG CAP PO SCH ×2 (08:19→20:40)
[2018-12-05] MEDS: CIPROFLOXACIN 500 MG TAB PO SCH ×2 (08:20→17:46)
[2018-12-05] MEDS: ENOXAPARIN 40 MG/0.4 ML SYG SC SCH (09:00)
--- NOTE | 2018-12-05 12:37 | PN ---
Date/Time of Note Date/Time of Note DATE: 12/05/18 TIME: 12:36 Objective Vital Signs Date Temp Pulse Resp B/P (MAP) Pulse Ox O2 O2 Flow FiO2 Time Delivery Rate 12/05/18 97.9 67 18 100/56 97 Room Air 07:00 (71) Intake and Output 12/04/18 12/04/18 12/05/18 1515:00 23:00 07:00 IntakeIntake Total 200 ml 300 ml OutputOutput Total 650 ml 500 ml BalanceBalance -450 ml -200 ml Exam INTERDISCIPLINARY TEAM CONFERENCE Attended by PT, OT, ST, Plug Paster, Social Work, Rehabilitation Nursing, Chief Green Officer and Robot DesignerUnderwriting Support Manager Exam: Pulm-CTA Abd-soft BOWEL- Cont BLADDER-Cont SKIN- improving OT- DRESSING-sba/min BATHING-sba/min TOILETING-min PT- BED MOBILITY-sba TRANSFERS-min AMBULATION-min 100 x 2 SPEECH- COGNITION-mod/min Dysphagia- tolerating regular diet A/P- Interdisciplinary team conference held today. Please see interdisciplinary sheet. Working toward d.c. on 12/13 with post discharge follow up of physical therapy, occupational therapy. Results/Medications Medications Current Medications Docusate Sodium (Colace) 100 mg BID PO Last administered on 12/05/18at 08:19; Admin Dose 100 MG; Start 11/29/18 at 21:00 Senna (Senokot) 1 tab HS PO Last administered on 12/02/18at 21:02; Admin Dose 1 TAB; Start 11/29/18 at 21:00 Magnesium Hydroxide (Milk Of Mag) 30 ml BID PRN PO CONSTIPATION; Start 11/29/18 at 18:30 Lactulose (Enulose) 20 gm DAILY PRN PO CONSTIPATION; Start 11/29/18 at 18:30 Bisacodyl (Dulcolax Supp) 10 mg DAILY PRN [place] CONSTIPATION; Start 11/29/18 at 18:30 Acetaminophen (Tylenol Tab) 650 mg Q4H PRN PO PAIN; Start 11/29/18 at 18:30 Aspirin (Aspirin) 325 mg DAILY PO Last administered on 12/05/18at 08:19; Admin Dose 325 MG; Start 11/30/18 at 09:00 Atorvastatin Calcium (Lipitor) 40 mg HS PO Last administered on 12/02/18at 21:00; Admin Dose 40 MG; Start 11/29/18 at 21:00 Clopidogrel Bisulfate (plaVIX) 75 mg DAILY PO Last administered on 12/05/18at 08:19; Admin Dose 75 MG; Start 11/30/18 at 09:00 Albuterol (Ventolin Hfa) 1 puff ONCE PRN INH WHEEZING; Start 11/29/18 at 19:00 Albuterol/ Ipratropium (Duoneb) 3 ml Q4H RESP THERAPY PRN HHN SHORTNESS OF BR EATH; Start 11/30/18 at 06:30 Ciprofloxacin (Cipro) 500 mg BID@06,18 PO Last administered on 12/04/18at 06:16; Admin Dose 500 MG; Start 12/02/18 at 18:00; Stop 12/11/18 at 17:59 Enoxaparin Sodium (Lovenox) 40 mg DAILY SC ; Start 12/03/18 at 09:00 Midodrine (Midodrine) 10 mg TID PRN PO for SBP <100; Start 12/04/18 at 08:30 MICHAEL VARGAS MD Dec 05, 2018 12:37
[2018-12-05 14:18] VITALS: BP 98/59; PULSE 63; RESP 18
--- NOTE | 2018-12-05 15:18 | PN ---
Date/Time of Note Date/Time of Note DATE: 12/05/18 TIME: 15:13 Assessment/Plan VTE Prophylaxis Risk score (from Ns)>0 risk: 3 SCD applied (from [facility] [place]): No SCD contraindicated: other Pharmacological prophylaxis: LMWH Lines/Catheters IV Catheter Type (from [facility]): Peripheral IV Urinary Cath still in place: No Assessment/Plan Hospital Course SUBJECTIVE: pt has been refusing antibiotics and other medications. He has been tolerating physical therapy. OBJECTIVE: Vital signs-see below PHYSICAL EXAM: Constitutional: Adequately built,not in acute distress. HEENT: Head atraumatic and normocephalic. Eyes: Extraocular muscles intact. Anicteric sclerae. Pupils equal bilaterally, reactive to light. NECK: Supple without lymph node. CHEST: Clear and good breath sounds equally. No wheezing. No rhonchi. HEART: S1, S2. Regular rate and rhythm. ABDOMEN: Slight tenderness to suprapubic area. Soft/non tender with no rebound tenderness. Bowel sounds were present. EXTREMITIES: No cyanosis, clubbing or edema. NEUROLOGIC: Alert and oriented x3. No focal deficit. No sensory deficit. PSYCHOSOCIAL: No signs of depression. INTEGUMENTARY: No open wounds. ASSESSMENT AND PLAN:63-year-old male past medical history recent stroke on November 24, 2018 transferred to acute rehab for rehabilitation. Status post CVA -pt w/ Rt-sided weakness -Status post stent and thrombectomy performed for left ICA and MCA blockage. -cont. DAPT/statin -Continue rehab as coordinated by the acute rehab team including any physical therapy, occupational therapy, and other Orthostatic hypotension -Improved -Avoid antihypertensives -PRN midodrine Urinary tract infection -Continue Cipro w/stop date placed -Also please note that this patient has been refusing antibiotics Asthma -No present issues -DuoNebs as needed Untreated hepatitis C -Outpatient GI follow-up DVT prophylaxis: Lovenox ordered which patient refuses. Patient with Dr. Thorpe Exam/Review of Systems Exam Vitals Vital Signs Date Temp Pulse Resp B/P (MAP) Pulse Ox O2 O2 Flow FiO2 Time Delivery Rate 12/05/18 98.7 63 18 98/59 (72) 96 Room Air 14:18 Intake and Output 12/04/18 12/04/18 12/05/18 1515:00 23:00 07:00 IntakeIntake Total 200 ml 300 ml OutputOutput Total 650 ml 500 ml BalanceBalance -450 ml -200 ml Medications Medication Current Medications Docusate Sodium (Colace) 100 mg BID PO Last administered on 12/05/18at 08:19; Admin Dose 100 MG; Start 11/29/18 at 21:00 Senna (Senokot) 1 tab HS PO Last administered on 12/02/18at 21:02; Admin Dose 1 TAB; Start 11/29/18 at 21:00 Magnesium Hydroxide (Milk Of Mag) 30 ml BID PRN PO CONSTIPATION; Start 11/29/18 at 18:30 Lactulose (Enulose) 20 gm DAILY PRN PO CONSTIPATION; Start 11/29/18 at 18:30 Bisacodyl (Dulcolax Supp) 10 mg DAILY PRN [place] CONSTIPATION; Start 11/29/18 at 18:30 Acetaminophen (Tylenol Tab) 650 mg Q4H PRN PO PAIN; Start 11/29/18 at 18:30 Aspirin (Aspirin) 325 mg DAILY PO Last administered on 12/05/18at 08:19; Admin Dose 325 MG; Start 11/30/18 at 09:00 Atorvastatin Calcium (Lipitor) 40 mg HS PO Last administered on 12/02/18at 21:00; Admin Dose 40 MG; Start 11/29/18 at 21:00 Clopidogrel Bisulfate (plaVIX) 75 mg DAILY PO Last administered on 12/05/18at 08:19; Admin Dose 75 MG; Start 11/30/18 at 09:00 Albuterol (Ventolin Hfa) 1 puff ONCE PRN INH WHEEZING; Start 11/29/18 at 19:00 Albuterol/ Ipratropium (Duoneb) 3 ml Q4H RESP THERAPY PRN HHN SHORTNESS OF BREATH; Start 11/30/18 at 06:30 Ciprofloxacin (Cipro) 500 mg BID@,18 PO Last administered on 12/04/18at 06:16; Admin Dose 500 MG; Start 12/02/18 at 18:00; Stop 12/11/18 at 17:59 Enoxaparin Sodium (Lovenox) 40 mg DAILY SC ; Start 12/03/18 at 09:00 Midodrine (Midodrine) 10 mg TID PRN PO for SBP <100; Start 12/04/18 at 08:30 AC RAE NP Dec 05, 2018 15:18
[2018-12-05 19:50] VITALS: BP 92/56; PULSE 70; RESP 18
[2018-12-05] MEDS: ATORVASTATIN 20 MG TAB PO SCH (20:37)
[2018-12-05] MEDS: SENNA TAB PO SCH (20:40)
[2018-12-06 02:43] VITALS: BP 100/63; PULSE 66; RESP 18
[2018-12-06] MEDS: CIPROFLOXACIN 500 MG TAB PO SCH ×4 (06:00→18:15)
[2018-12-06 07:00] VITALS: BP 94/68; PULSE 60; RESP 18
[2018-12-06] MEDS: ASPIRIN 325 MG TAB PO SCH (08:06)
[2018-12-06] MEDS: CLOPIDOGREL 75 MG TAB PO SCH (08:09)
[2018-12-06] MEDS: ENOXAPARIN 40 MG/0.4 ML SYG SC SCH (08:11)
[2018-12-06] MEDS: DOCUSATE SODIUM 100 MG CAP PO SCH ×2 (08:11→20:57)
--- NOTE | 2018-12-06 11:45 | PN ---
Date/Time of Note Date/Time of Note DATE: 12/06/18 TIME: 11:45 Assessment/Plan VTE Prophylaxis Risk score (from Ns)>0 risk: 3 SCD applied (from [facility] [place]): No SCD contraindicated: other Pharmacological prophylaxis: LMWH Lines/Catheters IV Catheter Type (from [facility]): Peripheral IV Urinary Cath still in place: No Assessment/Plan Hospital Course SUBJECTIVE: no acute distress.. OBJECTIVE: Vital signs-see below PHYSICAL EXAM: Constitutional: Adequately built,not in acute distress. HEENT: Head atraumatic and normocephalic. Eyes: Extraocular muscles intact. Anicteric sclerae. Pupils equal bilaterally, reactive to light. NECK: Supple without lymph node. CHEST: Clear and good breath sounds equally. No wheezing. No rhonchi. HEART: S1, S2. Regular rate and rhythm. ABDOMEN: Slight tenderness to suprapubic area. Soft/non tender with no rebound tenderness. Bowel sounds were present. EXTREMITIES: No cyanosis, clubbing or edema. NEUROLOGIC: Alert and oriented x3. No focal deficit. No sensory deficit. PSYCHOSOCIAL: No signs of depression. INTEGUMENTARY: No open wounds. ASSESSMENT AND PLAN:63-year-old male past medical history recent stroke on November 24, 2018 transferred to acute rehab for rehabilitation. Status post CVA -pt w/ Rt-sided weakness -Status post stent and thrombectomy performed for left ICA and MCA blockage. -cont. DAPT/statin -Continue rehab as coordinated by the acute rehab team including any physical therapy, occupational therapy, and other Orthostatic hypotension -Improved -Avoid antihypertensives -PRN midodrine Urinary tract infection -Continue Cipro w/stop date placed -Also please note that this patient has been refusing antibiotics Asthma -No present issues -DuoNebs as needed Untreated hepatitis C -Outpatient GI follow-up DVT prophylaxis: Lovenox ordered which patient refuses. Patient with Dr. Thorpe Exam/Review of Systems Exam Vitals Vital Signs Date Temp Pulse Resp B/P (MAP) Pulse Ox O2 O2 Flow FiO2 Time Delivery Rate 12/06/18 98.0 60 18 94/68 (77) 96 Room Air 07:00 Intake and Output 12/05/18 12/05/18 12/06/18 1515:00 23:00 07:00 IntakeIntake Total 240 ml OutputOutput Total 200 ml 300 ml 300 ml BalanceBalance 40 ml -300 ml -300 ml Medications Medication Current Medications Docusate Sodium (Colace) 100 mg BID PO Last administered on 12/05/18 08:19; Admin Dose 100 MG; Start 11/29/18 at 21:00 Senna (Senokot) 1 tab HS PO Last administered on 12/02/18 21:02; Admin Dose 1 TAB; Start 11/29/18 at 21:00 Magnesium Hydroxide (Milk Of Mag) 30 ml BID PRN PO CONSTIPATION; Start 11/29/18 at 18:30 Lactulose (Enulose) 20 gm DAILY PRN PO CONSTIPATION; Start 11/29/18 at 18:30 Bisacodyl (Dulcolax Supp) 10 mg DAILY PRN [place] CONSTIPATION; Start 11/29/18 at 18:30 Acetaminophen (Tylenol Tab) 650 mg Q4H PRN PO PAIN; Start 11/29/18 at 18:30 Aspirin (Aspirin) 325 mg DAILY PO Last administered on 12/06/18 08:06; Admin Dose 325 MG; Start 11/30/18 at 09:00 Atorvastatin Calcium (Lipitor) 40 mg HS PO Last administered on 12/05/18 20:37; Admin Dose 40 MG; Start 11/29/18 at 21:00 Clopidogrel Bisulfate (plaVIX) 75 mg DAILY PO Last administered on 12/06/18 08:09; Admin Dose 75 MG; Start 11/30/18 at 09:00 Albuterol (Ventolin Hfa) 1 puff ONCE PRN INH WHEEZING; Start 11/29/18 at 19:00 Albuterol/ Ipratropium (Duoneb) 3 ml Q4H RESP THERAPY PRN HHN SHORTNESS OF BREATH; Start 11/30/18 at 06:30 Ciprofloxacin (Cipro) 500 mg BID@,18 PO Last administered on 12/06/18 08:13; Admin Dose 500 MG; Start 12/02/18 at 18:00; Stop 12/11/18 at 17:59 Enoxaparin Sodium (Lovenox) 40 mg DAILY SC ; Start 12/03/18 at 09:00 Midodrine (Midodrine) 10 mg TID PRN PO for SBP <100 Last administered on 12/05/18 20:37; Admin Dose 10 MG; Start 12/04/18 at 08:30 AC RAE NP Dec 06, 2018 11:45
[2018-12-06 14:00] VITALS: BP 98/53; PULSE 66; RESP 18
--- NOTE | 2018-12-06 14:15 | PN ---
Date/Time of Note Date/Time of Note DATE: 12/06/18 TIME: 14:14 Subjective Patient reports overall feeling better Objective Vital Signs Date Temp Pulse Resp B/P (MAP) Pulse Ox O2 O2 Flow FiO2 Time Delivery Rate 12/06/18 98.0 60 18 94/68 (77) 96 Room Air 07:00 Intake and Output 12/05/18 12/05/18 12/06/18 1515:00 23:00 07:00 IntakeIntake Total 240 ml OutputOutput Total 200 ml 300 ml 300 ml BalanceBalance 40 ml -300 ml -300 ml Exam pulm-cta abd-soft cga ambulation Results/Medications Medications Current Medications Docusate Sodium (Colace) 100 mg BID PO Last administered on 12/05/18at 08:19; Admin Dose 100 MG; Start 11/29/18 at 21:00 Senna (Senokot) 1 tab HS PO Last administered on 12/02/18at 21:02; Admin Dose 1 TAB; Start 11/29/18 at 21:00 Magnesium Hydroxide (Milk Of Mag) 30 ml BID PRN PO CONSTIPATION; Start 11/29/18 at 18:30 Lactulose (Enulose) 20 gm DAILY PRN PO CONSTIPATION; Start 11/29/18 at 18:30 Bisacodyl (Dulcolax Supp) 10 mg DAILY PRN [place] CONSTIPATION; Start 11/29/18 at 18:30 Acetaminophen (Tylenol Tab) 650 mg Q4H PRN PO PAIN; Start 11/29/18 at 18:30 Aspirin (Aspirin) 325 mg DAILY PO Last administered on 12/06/18at 08:06; Admin Dose 325 MG; Start 11/30/18 at 09:00 Atorvastatin Calcium (Lipitor) 40 mg HS PO Last administered on 12/05/18at 20:37; Admin Dose 40 MG; Start 11/29/18 at 21:00 Clopidogrel Bisulfate (plaVIX) 75 mg DAILY PO Last administered on 12/06/18at 08:09; Admin Dose 75 MG; Start 11/30/18 at 09:00 Albuterol (Ventolin Hfa) 1 puff ONCE PRN INH WHEEZING; Start 11/29/18 at 19:00 Albuterol/ Ipratropium (Duoneb) 3 ml Q4H RESP THERAPY PRN HHN SHORTNESS OF BREATH; Start 11/30/18 at 06:30 Ciprofloxacin (Cipro) 500 mg BID@06,18 PO Last administered on 12/06/18at 08:13; Admin Dose 500 MG; Start 12/02/18 at 18:00; Stop 12/11/18 at 17:59 Enoxaparin Sodium (Lovenox) 40 mg DAILY SC ; Start 12/03/18 at 09:00 Midodrine (Midodrine) 10 mg TID PRN PO for SBP <100 Last administered on 12/05/18at 20:37; Admin Dose 10 MG; Start 12/04/18 at 08:30 Assessment/Plan Additional Assessment/Plan Rehab- 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 Continue rehab treatment plan Hypotension- continue current med and abdominal binder and brenda hose for OOB Sinus bradycardia. Left carotid stenosis. Asthma. Dysphagia- speech therapy MICHAEL VARGAS MD Dec 06, 2018 14:15
[2018-12-06 20:00] VITALS: BP 95/56; PULSE 65; RESP 18
[2018-12-06] MEDS: ATORVASTATIN 20 MG TAB PO SCH (20:56)
[2018-12-06] MEDS: SENNA TAB PO SCH (20:57)
[2018-12-07 02:00] VITALS: BP 99/62; PULSE 68; RESP 18
[2018-12-07] MEDS: CIPROFLOXACIN 500 MG TAB PO SCH ×2 (06:36→17:40)
[2018-12-07 08:00] VITALS: BP 108/58; PULSE 66; RESP 18
[2018-12-07] MEDS: ENOXAPARIN 40 MG/0.4 ML SYG SC SCH (09:00)
[2018-12-07] MEDS: DOCUSATE SODIUM 100 MG CAP PO SCH ×2 (09:00→21:00)
[2018-12-07] MEDS: CLOPIDOGREL 75 MG TAB PO SCH (10:09)
[2018-12-07] MEDS: ASPIRIN 325 MG TAB PO SCH (10:09)
--- NOTE | 2018-12-07 11:59 | PN ---
Date/Time of Note Date/Time of Note DATE: 12/07/18 TIME: 11:58 Subjective No new complaints Objective Vital Signs Date Temp Pulse Resp B/P (MAP) Pulse Ox O2 O2 Flow FiO2 Time Delivery Rate 12/07/18 97.8 66 18 108/58 98 Room Air 08:00 (75) Intake and Output 12/06/18 12/06/18 12/07/18 1515:00 23:00 07:00 IntakeIntake Total 240 ml 1200 ml OutputOutput Total 800 ml BalanceBalance 240 ml 400 ml Exam pulm-cta sba 150 feet Results/Medications Medications Current Medications Docusate Sodium (Colace) 100 mg BID PO Last administered on 12/05/18at 08:19; Admin Dose 100 MG; Start 11/29/18 at 21:00 Senna (Senokot) 1 tab HS PO Last administered on 12/02/18at 21:02; Admin Dose 1 TAB; Start 11/29/18 at 21:00 Magnesium Hydroxide (Milk Of Mag) 30 ml BID PRN PO CONSTIPATION; Start 11/29/18 at 18:30 Lactulose (Enulose) 20 gm DAILY PRN PO CONSTIPATION; Start 11/29/18 at 18:30 Bisacodyl (Dulcolax Supp) 10 mg DAILY PRN [place] CONSTIPATION; Start 11/29/18 at 18:30 Acetaminophen (Tylenol Tab) 650 mg Q4H PRN PO PAIN; Start 11/29/18 at 18:30 Aspirin (Aspirin) 325 mg DAILY PO Last administered on 12/07/18at 10:09; Admin Dose 325 MG; Start 11/30/18 at 09:00 Atorvastatin Calcium (Lipitor) 40 mg HS PO Last administered on 12/06/18at 20:56; Admin Dose 40 MG; Start 11/29/18 at 21:00 Clopidogrel Bisulfate (plaVIX) 75 mg DAILY PO Last administered on 12/07/18at 10:09; Admin Dose 75 MG; Start 11/30/18 at 09:00 Albuterol (Ventolin Hfa) 1 puff ONCE PRN INH WHEEZING; Start 11/29/18 at 19:00 Albuterol/ Ipratropium (Duoneb) 3 ml Q4H RESP THERAPY PRN HHN SHORTNESS OF BREATH; Start 11/30/18 at 06:30 Ciprofloxacin (Cipro) 500 mg BID@06,18 PO Last administered on 12/07/18at 06:36; Admin Dose 500 MG; Start 12/02/18 at 18:00; Stop 12/11/18 at 17:59 Enoxaparin Sodium (Lovenox) 40 mg DAILY SC ; Start 12/03/18 at 09:00 Midodrine (Midodrine) 10 mg TID PRN PO for SBP <100 Last administered on 12/05/18at 20:37; Admin Dose 10 MG; Start 12/04/18 at 08:30 Assessment/Plan Additional Assessment/Plan Rehab- Left MCA infarct cerebrovascular accident with right-sided weakness. Continue rehab plan Hypotension- improved Sinus bradycardia. Left carotid stenosis. Asthma. Dysphagia- improved MICHAEL VARGAS MD Dec 07, 2018 11:59
--- NOTE | 2018-12-07 12:33 | PN ---
Date/Time of Note Date/Time of Note DATE: 12/07/18 TIME: 12:31 Assessment/Plan VTE Prophylaxis Risk score (from [facility])>0 risk: 3 [place] [facility] [place]CD contraindicated: low risk/ambulating Pharmacological prophylaxis: heparin Pharm contraindication: low risk/ambulating Lines/Catheters [facility] Type ([facility] Peripheral IV Urinary Cath still in place: No Assessment/Plan Problems: (1) Cerebrovascular accident involving left middle cerebral artery territory Status: Acute Comment: Progressing nicely. Anticipate discharge within the next 7 days (2) Chronic hepatitis C without hepatic coma Status: Chronic Comment: This is a new diagnosis. This will need to be followed up as an outpatient, we will try and get the information on who his primary care physician is so we may forward that to that physician so that there will be a completion of the loop of communication (3) Hyperlipidemia Status: Chronic Comment: Stable on treatment Qualifiers: Hyperlipidemia type: pure hypercholesterolemia Qualified Codes: E78.00 - Pure hypercholesterolemia, unspecified (4) Asthma, moderate persistent Status: Chronic Comment: Stable Qualifiers: Asthma complication type: uncomplicated Qualified Codes: J45.40 - Moderate persistent asthma, uncomplicated (5) Enterococcus UTI Onset Date: ~ 11/29/2018 Status: Acute Comment: Completing antibiotic therapy Subjective 24 Hr Interval Summary Constitutional: no complaints Respiratory: no complaints Cardiovascular: no complaints Gastrointestinal: no complaints Exam/Review of Systems Exam Vitals Vital Signs Date Temp Pulse Resp B/P (MAP) Pulse Ox O2 O2 Flow FiO2 Time Delivery Rate 12/07/18 97.8 66 18 108/58 98 Room Air 08:00 (75) Intake and Output 12/06/18 12/06/18 12/07/18 1515:00 23:00 07:00 IntakeIntake Total 240 ml 1200 ml OutputOutput Total 800 ml BalanceBalance 240 ml 400 ml Constitutional: alert, oriented Neck: supple, non-tender Respiratory: clear to auscultation, normal air movement Cardiovascular: regular rate and rhythm, nl pulses Gastrointestinal: soft, nl liver, spleen, non-tender Medications Medication Current Medications Docusate Sodium (Colace) 100 mg BID PO Last administered on 12/05/18at 08:19; Admin Dose 100 MG; Start 11/29/18 at 21:00 Senna (Senokot) 1 tab HS PO Last administered on 12/02/18 21:02; Admin Dose 1 TAB; Start 11/29/18 at 21:00 Magnesium Hydroxide (Milk Of Mag) 30 ml BID PRN PO CONSTIPATION; Start 11/29/18 at 18:30 Lactulose (Enulose) 20 gm DAILY PRN PO CONSTIPATION; Start 11/29/18 at 18:30 Bisacodyl (Dulcolax Supp) 10 mg DAILY PRN [place] CONSTIPATION; Start 11/29/18 at 18:30 Acetaminophen (Tylenol Tab) 650 mg Q4H PRN PO PAIN; Start 11/29/18 at 18:30 Aspirin (Aspirin) 325 mg DAILY PO Last administered on 12/07/18 10:09; Admin Dose 325 MG; Start 11/30/18 at 09:00 Atorvastatin Calcium (Lipitor) 40 mg HS PO Last administered on 12/06/18 20:56; Admin Dose 40 MG; Start 11/29/18 at 21:00 Clopidogrel Bisulfate (plaVIX) 75 mg DAILY PO Last administered on 12/07/18 10:09; Admin Dose 75 MG; Start 11/30/18 at 09:00 Albuterol (Ventolin Hfa) 1 puff ONCE PRN INH WHEEZING; Start 11/29/18 at 19:00 Albuterol/ Ipratropium (Duoneb) 3 ml Q4H RESP THERAPY PRN HHN SHORTNESS OF BREATH; Start 11/30/18 at 06:30 Ciprofloxacin (Cipro) 500 mg BID@06,18 PO Last administered on 12/07/18 06:36; Admin Dose 500 MG; Start 12/02/18 at 18:00; Stop 12/11/18 at 17:59 Enoxaparin Sodium (Lovenox) 40 mg DAILY SC ; Start 12/03/18 at 09:00 Midodrine (Midodrine) 10 mg TID PRN PO for SBP <100 Last administered on 12/05/18 20:37; Admin Dose 10 MG; Start 12/04/18 at 08:30 NIKA GAN MD Dec 07, 2018 12:33
[2018-12-07 14:00] VITALS: BP 99/54; PULSE 68; RESP 18
[2018-12-07 19:36] VITALS: BP 96/54; PULSE 73; RESP 18
[2018-12-07] MEDS: ATORVASTATIN 20 MG TAB PO SCH (21:00)
[2018-12-07] MEDS: SENNA TAB PO SCH (21:00)
[2018-12-08 02:31] VITALS: BP 95/55; PULSE 74; RESP 18
[2018-12-08] MEDS: CIPROFLOXACIN 500 MG TAB PO SCH ×2 (06:46→17:29)
[2018-12-08 07:30] VITALS: BP 96/60; PULSE 68; RESP 18
[2018-12-08] MEDS: ASPIRIN 325 MG TAB PO SCH (08:21)
[2018-12-08] MEDS: DOCUSATE SODIUM 100 MG CAP PO SCH ×2 (08:21→20:16)
[2018-12-08 08:24] VITALS: BP 102/64; PULSE 72; RESP 19
[2018-12-08] MEDS: ENOXAPARIN 40 MG/0.4 ML SYG SC SCH (08:24)
[2018-12-08] MEDS: CLOPIDOGREL 75 MG TAB PO SCH (08:24)
--- NOTE | 2018-12-08 09:53 | PN ---
Date/Time of Note Date/Time of Note DATE: 12/08/18 TIME: 09:49 Assessment/Plan VTE Pro[place]axis [place] [facility] [place]: 4 [place] [facility] [place] No SCD contraindicated: low risk/ambulating Pharmacological prophylaxis: heparin Pharm contraindication: low risk/ambulating Lines/Catheters IV C[facility]ter Type (from [facility]): Peripheral IV Urinary Cath still in place: No Assessment/Plan Problems: (1) Cerebrovascular accident involving left middle cerebral artery territory Status: Acute Comment: Recuperating nicely with the guidance of the acute rehabilitation unit protocol (2) Hyperlipidemia Status: Chronic Comment: Continue with aggressive statin therapy and risk factor reduction Qualifiers: Hyperlipidemia type: pure hypercholesterolemia Qualified Codes: E78.00 - Pure hypercholesterolemia, unspecified (3) Chronic hepatitis C without hepatic coma Status: Chronic Comment: Noted. This will need to be worked up as an outpatient (4) Enterococcus UTI Onset Date: ~ 11/29/2018 Status: Acute Comment: Completing antibiotic therapy (5) Asthma, moderate persistent Status: Chronic Comment: Adequate control Qualifiers: Asthma complication type: uncomplicated Qualified Codes: J45.40 - Moderate persistent asthma, uncomplicated Subjective 24 Hr Interval Summary Free Text/Dictation Patient reports that he is getting up and around. Constitutional: no complaints Respiratory: no complaints Cardiovascular: no complaints Gastrointestinal: no complaints Genitourinary: no complaints Exam/Review of Systems Exam Vitals Vital Signs Date Temp Pulse Resp B/P (MAP) Pulse Ox O2 O2 Flow FiO2 Time Delivery Rate 12/08/18 72 19 102/64 98 Room Air 08:24 (77) 12/08/18 98.4 07:30 Intake and Output 12/07/18 12/07/18 12/08/18 1515:00 23:00 07:00 IntakeIntake Total 1360 ml 1650 ml 200 ml OutputOutput Total 400 ml 800 ml 300 ml BalanceBalance 960 ml 850 ml -100 ml Constitutional: alert, oriented Neck: supple, non-tender Respiratory: clear to auscultation, normal air movement Cardiovascular: regular rate and rhythm, nl pulses Gastrointestinal: soft, nl liver, spleen, non-tender Medications Medication Current Medications Docusate Sodium (Colace) 100 mg BID PO Last administered on 12/08/18at 08:21; Admin Dose 100 MG; Start 11/29/18 at 21:00 Senna (Senokot) 1 tab HS PO Last administered on 12/02/18 21:02; Admin Dose 1 TAB; Start 11/29/18 at 21:00 Magnesium Hydroxide (Milk Of Mag) 30 ml BID PRN PO CONSTIPATION; Start 11/29/18 at 18:30 Lactulose (Enulose) 20 gm DAILY PRN PO CONSTIPATION; Start 11/29/18 at 18:30 Bisacodyl (Dulcolax Supp) [address] [place] CONSTIPATION; Start 11/29/18 at 18:30 Acetaminophen (Tylenol Tab) 650 mg Q4H PRN PO PAIN; Start 11/29/18 at 18:30 Aspirin (Aspirin) 325 mg DAILY PO Last administered on 12/08/18 08:21; Admin Dose 325 MG; Start 11/30/18 at 09:00 Atorvastatin Calcium (Lipitor) 40 mg HS PO Last administered on 12/06/18at 20:56; Admin Dose 40 MG; Start 11/29/18 at 21:00 Clopidogrel Bisulfate (plaVIX) 75 mg DAILY PO Last administered on 12/07/18 10:09; Admin Dose 75 MG; Start 11/30/18 at 09:00 Albuterol (Ventolin Hfa) 1 puff ONCE PRN INH WHEEZING; Start 11/29/18 at 19:00 Albuterol/ Ipratropium (Duoneb) 3 ml Q4H RESP THERAPY PRN HHN SHORTNESS OF BREATH; Start 11/30/18 at 06:30 Ciprofloxacin (Cipro) 500 mg BID@,18 PO Last administered on 12/08/18at 06:46; Admin Dose 500 MG; Start 12/02/18 at 18:00; Stop 12/11/18 at 17:59 Enoxaparin Sodium (Lovenox) 40 mg DAILY SC ; Start 12/03/18 at 09:00 Midodrine (Midodrine) 10 mg TID PRN PO for SBP <100 Last administered on 12/05/18at 20:37; Admin Dose 10 MG; Start 12/04/18 at 08:30 NIKA GAN MD Dec 08, 2018 09:53
[2018-12-08 14:00] VITALS: BP 106/66; PULSE 76; RESP 18
[2018-12-08 20:00] VITALS: BP 98/61; PULSE 86; RESP 18
[2018-12-08] MEDS: SENNA TAB PO SCH (20:16)
[2018-12-08] MEDS: ATORVASTATIN 20 MG TAB PO SCH (20:16)
[2018-12-09 02:24] VITALS: BP 100/58; PULSE 73; RESP 18
[2018-12-09] MEDS: CIPROFLOXACIN 500 MG TAB PO SCH ×2 (06:39→17:25)
[2018-12-09 07:00] VITALS: BP 85/60; PULSE 76; RESP 18
[2018-12-09 08:21] VITALS: BP 114/67
[2018-12-09] MEDS: CLOPIDOGREL 75 MG TAB PO SCH (08:23)
[2018-12-09] MEDS: ASPIRIN 325 MG TAB PO SCH (08:23)
[2018-12-09] MEDS: DOCUSATE SODIUM 100 MG CAP PO SCH ×2 (08:25→21:00)
[2018-12-09] MEDS: ENOXAPARIN 40 MG/0.4 ML SYG SC SCH (08:25)
--- NOTE | 2018-12-09 11:41 | PN ---
Date/Time of Note Date/Time of Note DATE: 12/09/18 TIME: 11:40 Objective Vital Signs Date Temp Pulse Resp B/P (MAP) Pulse Ox O2 O2 Flow FiO2 Time Delivery Rate 12/09/18 114/67 08:21 (83) 12/09/18 97.7 76 18 98 Room Air 07:00 Intake and Output 12/08/18 12/08/18 12/09/18 1515:00 23:00 07:00 IntakeIntake Total 980 ml OutputOutput Total 300 ml BalanceBalance 980 ml -300 ml Exam sba transfers sba ambulation 150 feet Results/Medications Medications Current Medications Docusate Sodium (Colace) 100 mg BID PO Last administered on 12/08/18at 20:16; Admin Dose 100 MG; Start 11/29/18 at 21:00 Senna (Senokot) 1 tab HS PO Last administered on 12/02/18at 21:02; Admin Dose 1 TAB; Start 11/29/18 at 21:00 Magnesium Hydroxide (Milk Of Mag) 30 ml BID PRN PO CONSTIPATION; Start 11/29/18 at 18:30 Lactulose (Enulose) 20 gm DAILY PRN PO CONSTIPATION; Start 11/29/18 at 18:30 Bisacodyl (Dulcolax Supp) 10 mg DAILY PRN [place] CONSTIPATION; Start 11/29/18 at 18:30 Acetaminophen (Tylenol Tab) 650 mg Q4H PRN PO PAIN; Start 11/29/18 at 18:30 Aspirin (Aspirin) 325 mg DAILY PO Last administered on 12/09/18at 08:23; Admin Dose 325 MG; Start 11/30/18 at 09:00 Atorvastatin Calcium (Lipitor) 40 mg HS PO Last administered on 12/06/18at 20:56; Admin Dose 40 MG; Start 11/29/18 at 21:00 Clopidogrel Bisulfate (plaVIX) 75 mg DAILY PO Last administered on 12/09/18at 08:23; Admin Dose 75 MG; Start 11/30/18 at 09:00 Albuterol (Ventolin Hfa) 1 puff ONCE PRN INH WHEEZING; Start 11/29/18 at 19:00 Albuterol/ Ipratropium (Duoneb) 3 ml Q4H RESP THERAPY PRN HHN SHORTNESS OF BREATH; Start 11/30/18 at 06:30 Ciprofloxacin (Cipro) 500 mg BID@,18 PO Last administered on 12/09/18at 06:39; Admin Dose 500 MG; Start 12/02/18 at 18:00; Stop 12/11/18 at 17:59 Enoxaparin Sodium (Lovenox) 40 mg DAILY SC ; Start 12/03/18 at 09:00 Midodrine (Midodrine) 10 mg TID PRN PO for SBP <100 Last administered on 12/05/18at 20:37; Admin Dose 10 MG; Start 12/04/18 at 08:30 Assessment/Plan Additional Assessment/Plan Rehab- Left MCA infarct cerebrovascular accident with right-sided weakness. Excellent progress with rehab program, continue treatment plan Hypotension- improved Sinus bradycardia. Left carotid stenosis. Asthma. Dysphagia- improved MICHAEL VARGAS MD Dec 09, 2018 11:41
[2018-12-09 14:00] VITALS: BP 100/59; PULSE 64; RESP 18
--- NOTE | 2018-12-09 14:25 | PN ---
Date/Time of Note Date/Time of Note DATE: 12/09/18 TIME: 14:22 Assessment/Plan VTE Prophylaxis [place] [facility] [place] risk: 3 SCD applied [place] [facility] [place] No SCD contraindicated: other Pharmacological prophylaxis: NA/contraindicated Pharm contraindication: low risk/ambulating, patient refusal Lines/Catheters [facility] (from [facility]): Peripheral IV Urinary Cath still in place: No Assessment/Plan Hospital Course SUBJECTIVE: no acute distress.. OBJECTIVE: Vital signs-see below PHYSICAL EXAM: Constitutional: Adequately built,not in acute distress. HEENT: Head atraumatic and normocephalic. Eyes: Extraocular muscles intact. Anicteric sclerae. Pupils equal bilaterally, reactive to light. NECK: Supple without lymph node. CHEST: Clear and good breath sounds equally. No wheezing. No rhonchi. HEART: S1, S2. Regular rate and rhythm. ABDOMEN: Slight tenderness to suprapubic area. Soft/non tender with no rebound tenderness. Bowel sounds were present. EXTREMITIES: No cyanosis, clubbing or edema. NEUROLOGIC: Alert and oriented x3. No focal deficit. No sensory deficit. PSYCHOSOCIAL: No signs of depression. INTEGUMENTARY: No open wounds. ASSESSMENT AND PLAN:63-year-old male past medical history recent stroke on November 24, 2018 transferred to acute rehab for rehabilitation. Status post CVA -pt w/ Rt-sided weakness -Status post stent and thrombectomy performed for left ICA and MCA blockage. -cont. DAPT/statin -Continue rehab as coordinated by the acute rehab team including any physical therapy, occupational therapy, and other Orthostatic hypotension -Improved -Avoid antihypertensives -PRN midodrine Urinary tract infection -Continue Cipro w/stop date placed Asthma -No present issues -DuoNebs as needed Hepatitis C -Outpatient GI follow-up Dyslipidemia -On statin therapy DVT prophylaxis:SCDs/Ambulation. Patient refused chemical anticoagulation Patient with Dr. Claudio Exam/Review of Systems Exam Vitals Vital Signs Date Temp Pulse Resp B/P (MAP) Pulse Ox O2 O2 Flow FiO2 Time Delivery Rate 12/09/18 114/67 08:21 (83) 12/09/18 97.7 76 18 98 Room Air 07:00 Intake and Output 12/08/18 12/08/18 12/09/18 1515:00 23:00 07:00 IntakeIntake Total 980 ml OutputOutput Total 300 ml BalanceBalance 980 ml -300 ml Medications Medication Current Medications Docusate Sodium (Colace) 100 mg BID PO Last administered on 12/08/18 20:16; Admin Dose 100 MG; Start 11/29/18 at 21:00 Senna (Senokot) 1 tab HS PO Last administered on 12/02/18at 21:02; Admin Dose 1 TAB; Start 11/29/18 at 21:00 Magnesium Hydroxide (Milk Of Mag) 30 ml BID PRN PO CONSTIPATION; Start 11/29/18 at 18:30 Lactulose (Enulose) 20 gm DAILY PRN PO CONSTIPATION; Start 11/29/18 at 18:30 Bisacodyl (Dulcolax Supp) 10 mg DAILY PRN [place] CONSTIPATION; Start 11/29/18 at 18:30 Acetaminophen (Tylenol Tab) 650 mg Q4H PRN PO PAIN; Start 11/29/18 at 18:30 Aspirin (Aspirin) 325 mg DAILY PO Last administered on 12/09/18at 08:23; Admin Dose 325 MG; Start 11/30/18 at 09:00 Atorvastatin Calcium (Lipitor) 40 mg HS PO Last administered on 12/06/18at 20:56; Admin Dose 40 MG; Start 11/29/18 at 21:00 Clopidogrel Bisulfate (plaVIX) 75 mg DAILY PO Last administered on 12/09/18 08:23; Admin Dose 75 MG; Start 11/30/18 at 09:00 Albuterol (Ventolin Hfa) 1 puff ONCE PRN INH WHEEZING; Start 11/29/18 at 19:00 Albuterol/ Ipratropium (Duoneb) 3 ml Q4H RESP THERAPY PRN HHN SHORTNESS OF BREATH; Start 11/30/18 at 06:30 Ciprofloxacin (Cipro) 500 mg BID@,18 PO Last administered on 12/09/18at 06:39; Admin Dose 500 MG; Start 12/02/18 at 18:00; Stop 12/11/18 at 17:59 Enoxaparin Sodium (Lovenox) 40 mg DAILY SC ; Start 12/03/18 at 09:00 Midodrine (Midodrine) 10 mg TID PRN PO for SBP <100 Last administered on 12/05/18at 20:37; Admin Dose 10 MG; Start 12/04/18 at 08:30 AC RAE NP Dec 09, 2018 14:25
[2018-12-09 20:15] VITALS: BP 103/59; PULSE 71; RESP 18
[2018-12-09] MEDS: ATORVASTATIN 20 MG TAB PO SCH (21:09)
[2018-12-09] MEDS: SENNA TAB PO SCH (21:09)
[2018-12-10 02:15] VITALS: BP 109/65; PULSE 78; RESP 18
[2018-12-10] MEDS: CIPROFLOXACIN 500 MG TAB PO SCH ×2 (06:34→17:11)
[2018-12-10 07:00] VITALS: BP 105/58; PULSE 74; RESP 18
[2018-12-10] MEDS: CLOPIDOGREL 75 MG TAB PO SCH (08:51)
[2018-12-10] MEDS: ASPIRIN 325 MG TAB PO SCH (08:51)
[2018-12-10] MEDS: DOCUSATE SODIUM 100 MG CAP PO SCH ×2 (08:54→20:58)
--- NOTE | 2018-12-10 11:25 | PN ---
Date/Time of Note Date/Time of Note DATE: 12/10/18 TIME: 11:23 Subjective Comfortable Objective Vital Signs Date Temp Pulse Resp B/P (MAP) Pulse Ox O2 O2 Flow FiO2 Time Delivery Rate 12/10/18 98.0 74 18 105/58 97 Room Air 07:00 (74) Intake and Output 12/09/18 12/09/18 12/10/18 1515:00 23:00 07:00 IntakeIntake Total 2120 ml OutputOutput Total 600 ml BalanceBalance 1520 ml Exam supervised transfers supervised ambulation Results/Medications Medications Current Medications Docusate Sodium (Colace) 100 mg BID PO Last administered on 12/08/18at 20:16; Admin Dose 100 MG; Start 11/29/18 at 21:00 Senna (Senokot) 1 tab HS PO Last administered on 12/09/18at 21:09; Admin Dose 1 TAB; Start 11/29/18 at 21:00 Magnesium Hydroxide (Milk Of Mag) 30 ml BID PRN PO CONSTIPATION; Start 11/29/18 at 18:30 Lactulose (Enulose) 20 gm DAILY PRN PO CONSTIPATION; Start 11/29/18 at 18:30 Bisacodyl (Dulcolax Supp) 10 mg DAILY PRN [place] CONSTIPATION; Start 11/29/18 at 18:30 Acetaminophen (Tylenol Tab) 650 mg Q4H PRN PO PAIN; Start 11/29/18 at 18:30 Aspirin (Aspirin) 325 mg DAILY PO Last administered on 12/10/18at 08:51; Admin Dose 325 MG; Start 11/30/18 at 09:00 Atorvastatin Calcium (Lipitor) 40 mg HS PO Last administered on 12/09/18at 21:09; Admin Dose 40 MG; Start 11/29/18 at 21:00 Clopidogrel Bisulfate (plaVIX) 75 mg DAILY PO Last administered on 12/10/18at 08:51; Admin Dose 75 MG; Start 11/30/18 at 09:00 Albuterol (Ventolin Hfa) 1 puff ONCE PRN INH WHEEZING; Start 11/29/18 at 19:00 Albuterol/ Ipratropium (Duoneb) 3 ml Q4H RESP THERAPY PRN HHN SHORTNESS OF BREATH; Start 11/30/18 at 06:30 Ciprofloxacin (Cipro) 500 mg BID@06,18 PO Last administered on 12/10/18at 06:34; Admin Dose 500 MG; Start 12/02/18 at 18:00; Stop 12/11/18 at 17:59 Midodrine (Midodrine) 10 mg TID PRN PO for SBP <100 Last administered on 12/05/18at 20:37; Admin Dose 10 MG; Start 12/04/18 at 08:30 Assessment/Plan Additional Assessment/Plan Rehab- Left MCA infarct cerebrovascular accident with right-sided weakness. Steady gains with rehab program Hypotension- improved Sinus bradycardia. Left carotid stenosis. Asthma. Dysphagia- improved MICHAEL VARGAS MD Dec 10, 2018 11:25
--- NOTE | 2018-12-10 13:14 | PN ---
Date/Time of Note Date/Time of Note DATE: 12/10/18 TIME: 13:12 Assessment/Plan VTE Prophylaxis Risk score (from [facility] [place])>0 risk: 3 SCD applied (from [facility] [place]): No SCD contraindicated: other Pharmacological prophylaxis: NA/contraindicated Pharm contraindication: low risk/ambulating, patient refusal Lines/Catheters IV Catheter Type (from [facility]): Peripheral IV Urinary Cath still in place: No Assessment/Plan Hospital Course SUBJECTIVE: no acute distress.. OBJECTIVE: Vital signs-see below PHYSICAL EXAM: Constitutional: Adequately built,not in acute distress. HEENT: Head atraumatic and normocephalic. Eyes: Extraocular muscles intact. Anicteric sclerae. Pupils equal bilaterally, reactive to light. NECK: Supple without lymph node. CHEST: Clear and good breath sounds equally. No wheezing. No rhonchi. HEART: S1, S2. Regular rate and rhythm. ABDOMEN: Slight tenderness to suprapubic area. Soft/non tender with no rebound tenderness. Bowel sounds were present. EXTREMITIES: No cyanosis, clubbing or edema. NEUROLOGIC: Alert and oriented x3. No focal deficit. No sensory deficit. PSYCHOSOCIAL: No signs of depression. INTEGUMENTARY: No open wounds. ASSESSMENT AND PLAN:63-year-old male past medical history recent stroke on November 24, 2018 transferred to acute rehab for rehabilitation. Status post CVA -pt w/ Rt-sided weakness -Status post stent and thrombectomy performed for left ICA and MCA blockage. -cont. DAPT/statin -Continue rehab as coordinated by the acute rehab team including any physical therapy, occupational therapy, and other Orthostatic hypotension -Improved -Avoid antihypertensives -PRN midodrine Urinary tract infection -Continue Cipro w/stop date placed Asthma -No present issues -DuoNebs as needed Hepatitis C -Outpatient GI follow-up Dyslipidemia -On statin therapy DVT prophylaxis:SCDs/Ambulation. Patient refused chemical anticoagulation Patient with Dr. Claudio Exam/Review of Systems Exam Vitals Vital Signs Date Temp Pulse Resp B/P (MAP) Pulse Ox O2 O2 Flow FiO2 Time Delivery Rate 12/10/18 98.0 74 18 105/58 97 Room Air 07:00 (74) Intake and Output 12/09/18 12/09/18 12/10/18 1515:00 23:00 07:00 IntakeIntake Total 2120 ml OutputOutput Total 600 ml BalanceBalance 1520 ml Medications Medication Current Medications Docusate Sodium (Colace) 100 mg BID PO Last administered on 12/08/18 20:16; Admin Dose 100 MG; Start 11/29/18 at 21:00 Senna (Senokot) 1 tab HS PO Last administered on 12/09/18 21:09; Admin Dose 1 TAB; Start 11/29/18 at 21:00 Magnesium Hydroxide (Milk Of Mag) 30 ml BID PRN PO CONSTIPATION; Start 11/29/18 at 18:30 Lactulose (Enulose) 20 gm DAILY PRN PO CONSTIPATION; Start 11/29/18 at 18:30 Bisacodyl (Dulcolax Supp) 10 mg DAILY PRN [place] CONSTIPATION; Start 11/29/18 at 18:30 Acetaminophen (Tylenol Tab) 650 mg Q4H PRN PO PAIN; Start 11/29/18 at 18:30 Aspirin (Aspirin) 325 mg DAILY PO Last administered on 12/10/18 08:51; Admin Dose 325 MG; Start 11/30/18 at 09:00 Atorvastatin Calcium (Lipitor) 40 mg HS PO Last administered on 12/09/18 21:09; Admin Dose 40 MG; Start 11/29/18 at 21:00 Clopidogrel Bisulfate (plaVIX) 75 mg DAILY PO Last administered on 12/10/18 08:51; Admin Dose 75 MG; Start 11/30/18 at 09:00 Albuterol (Ventolin Hfa) 1 puff ONCE PRN INH WHEEZING; Start 11/29/18 at 19:00 Albuterol/ Ipratropium (Duoneb) 3 ml Q4H RESP THERAPY PRN HHN SHORTNESS OF BREATH; Start 11/30/18 at 06:30 Ciprofloxacin (Cipro) 500 mg BID@,18 PO Last administered on 12/10/18 06:34; Admin Dose 500 MG; Start 12/02/18 at 18:00; Stop 12/11/18 at 17:59 Midodrine (Midodrine) 10 mg TID PRN PO for SBP <100 Last administered on 12/05/18 20:37; Admin Dose 10 MG; Start 12/04/18 at 08:30 AC RAE NP Dec 10, 2018 13:13
[2018-12-10 14:00] VITALS: BP 112/63; PULSE 67; RESP 18
[2018-12-10 20:00] VITALS: BP 107/60; PULSE 70; RESP 18
[2018-12-10] MEDS: SENNA TAB PO SCH (20:56)
[2018-12-10] MEDS: ATORVASTATIN 20 MG TAB PO SCH (20:56)
[2018-12-11 02:00] VITALS: BP 113/58; PULSE 61; RESP 18
[2018-12-11] MEDS: CIPROFLOXACIN 500 MG TAB PO SCH (06:47)
[2018-12-11 07:00] VITALS: BP 106/70; PULSE 75; RESP 18
[2018-12-11] MEDS: DOCUSATE SODIUM 100 MG CAP PO SCH ×2 (09:00→21:00)
[2018-12-11] MEDS: CLOPIDOGREL 75 MG TAB PO SCH (09:34)
[2018-12-11] MEDS: ASPIRIN 325 MG TAB PO SCH (09:35)
--- NOTE | 2018-12-11 11:07 | PN ---
Date/Time of Note Date/Time of Note DATE: 12/11/18 TIME: 11:05 Assessment/Plan VTE Prophylaxis Risk score (from [facility])>0 risk: 6 SCD applied (from [facility] [place]): No SCD contraindicated: other Pharmacological prophylaxis: NA/contraindicated Pharm contraindication: low risk/ambulating Lines/Catheters IV Catheter Type (from [facility]): Peripheral IV Urinary Cath still in place: No Assessment/Plan Hospital Course SUBJECTIVE: no acute distress.. OBJECTIVE: Vital signs-see below PHYSICAL EXAM: Constitutional: Adequately built,not in acute distress. HEENT: Head atraumatic and normocephalic. Eyes: Extraocular muscles intact. Anicteric sclerae. Pupils equal bilaterally, reactive to light. NECK: Supple without lymph node. CHEST: Clear and good breath sounds equally. No wheezing. No rhonchi. HEART: S1, S2. Regular rate and rhythm. ABDOMEN: Slight tenderness to suprapubic area. Soft/non tender with no rebound tenderness. Bowel sounds were present. EXTREMITIES: No cyanosis, clubbing or edema. NEUROLOGIC: Alert and oriented x3. No focal deficit. No sensory deficit. PSYCHOSOCIAL: No signs of depression. INTEGUMENTARY: No open wounds. ASSESSMENT AND PLAN:63-year-old male past medical history recent stroke on November 24, 2018 transferred to acute rehab for rehabilitation. Status post CVA -pt w/ Rt-sided weakness -Status post stent and thrombectomy performed for left ICA and MCA blockage. -cont. DAPT/statin -Continue rehab as coordinated by the acute rehab team including any physical therapy, occupational therapy, and other Orthostatic hypotension -Improved -Avoid antihypertensives -PRN midodrine Urinary tract infection -treated w.a course of cipro Asthma -No present issues -DuoNebs as needed Hepatitis C -Outpatient GI follow-up Dyslipidemia -On statin therapy DVT prophylaxis:SCDs/Ambulation. Patient refused chemical anticoagulation Patient with Dr. Claudio Exam/Review of Systems Exam Vitals Vital Signs Date Temp Pulse Resp B/P (MAP) Pulse Ox O2 O2 Flow FiO2 Time Delivery Rate 12/11/18 98.3 75 18 106/70 95 Room Air 07:00 (82) Intake and Output 12/10/18 12/10/18 12/11/18 1515:00 23:00 07:00 IntakeIntake Total 1540 ml 50 ml OutputOutput Total 1150 ml 360 ml BalanceBalance 390 ml -310 ml Medications Medication Current Medications Docusate Sodium (Colace) 100 mg BID PO Last administered on 12/08/18 20:16; Admin Dose 100 MG; Start 11/29/18 at 21:00 Senna (Senokot) 1 tab HS PO Last administered on 12/10/18 20:56; Admin Dose 1 TAB; Start 11/29/18 at 21:00 Magnesium Hydroxide (Milk Of Mag) 30 ml BID PRN PO CONSTIPATION; Start 11/29/18 at 18:30 Lactulose (Enulose) 20 gm DAILY PRN PO CONSTIPATION; Start 11/29/18 at 18:30 Bisacodyl (Dulcolax Supp) 10 mg DAILY PRN [place] CONSTIPATION; Start 11/29/18 at 18:30 Acetaminophen (Tylenol Tab) 650 mg Q4H PRN PO PAIN; Start 11/29/18 at 18:30 Aspirin (Aspirin) 325 mg DAILY PO Last administered on 12/11/18 09:35; Admin Dose 325 MG; Start 11/30/18 at 09:00 Atorvastatin Calcium (Lipitor) 40 mg HS PO Last administered on 12/10/18 20:56; Admin Dose 40 MG; Start 11/29/18 at 21:00 Clopidogrel Bisulfate (plaVIX) 75 mg DAILY PO Last administered on 12/11/18 09:34; Admin Dose 75 MG; Start 11/30/18 at 09:00 Albuterol (Ventolin Hfa) 1 puff ONCE PRN INH WHEEZING; Start 11/29/18 at 19:00 Albuterol/ Ipratropium (Duoneb) 3 ml Q4H RESP THERAPY PRN HHN SHORTNESS OF BREATH; Start 11/30/18 at 06:30 Ciprofloxacin (Cipro) 500 mg BID@18 PO Last administered on 12/11/18 06:47; Admin Dose 500 MG; Start 12/02/18 at 18:00; Stop 12/11/18 at 17:59 Midodrine (Midodrine) 10 mg TID PRN PO for SBP <100 Last administered on 12/05/18at 20:37; Admin Dose 10 MG; Start 12/04/18 at 08:30 AC RAE NP Dec 11, 2018 11:07
[2018-12-11 14:00] VITALS: BP 101/58; PULSE 63; RESP 18
--- NOTE | 2018-12-11 14:34 | PN ---
Date/Time of Note Date/Time of Note DATE: 12/11/18 TIME: 14:33 Subjective Patient comfortable Objective Vital Signs Date Temp Pulse Resp B/P (MAP) Pulse Ox O2 O2 Flow FiO2 Time Delivery Rate 12/11/18 98.3 75 18 106/70 95 Room Air 07:00 (82) Intake and Output 12/10/18 12/10/18 12/11/18 1515:00 23:00 07:00 IntakeIntake Total 1540 ml 50 ml OutputOutput Total 1150 ml 360 ml BalanceBalance 390 ml -310 ml Exam pulm-cta abd-soft sba ambulation Results/Medications Medications Current Medications Docusate Sodium (Colace) 100 mg BID PO Last administered on 12/08/18 20:16; Admin Dose 100 MG; Start 11/29/18 at 21:00 Senna (Senokot) 1 tab HS PO Last administered on 12/10/18at 20:56; Admin Dose 1 TAB; Start 11/29/18 at 21:00 Magnesium Hydroxide (Milk Of Mag) 30 ml BID PRN PO CONSTIPATION; Start 11/29/18 at 18:30 Lactulose (Enulose) 20 gm DAILY PRN PO CONSTIPATION; Start 11/29/18 at 18:30 Bisacodyl (Dulcolax Supp) 10 mg DAILY PRN [place] CONSTIPATION; Start 11/29/18 at 18:30 Acetaminophen (Tylenol Tab) 650 mg Q4H PRN PO PAIN; Start 11/29/18 at 18:30 Aspirin (Aspirin) 325 mg DAILY PO Last administered on 12/11/18at 09:35; Admin Dose 325 MG; Start 11/30/18 at 09:00 Atorvastatin Calcium (Lipitor) 40 mg HS PO Last administered on 12/10/18at 20:56; Admin Dose 40 MG; Start 11/29/18 at 21:00 Clopidogrel Bisulfate (plaVIX) 75 mg DAILY PO Last administered on 12/11/18at 09:34; Admin Dose 75 MG; Start 11/30/18 at 09:00 Albuterol (Ventolin Hfa) 1 puff ONCE PRN INH WHEEZING; Start 11/29/18 at 19:00 Albuterol/ Ipratropium (Duoneb) 3 ml Q4H RESP THERAPY PRN HHN SHORTNESS OF BREATH; Start 6/8/19 at 06:30 Ciprofloxacin (Cipro) 500 mg BID@,18 PO Last administered on 12/11/18at 06:47; Admin Dose 500 MG; Start 12/02/18 at 18:00; Stop 12/11/18 at 17:59 Midodrine (Midodrine) 10 mg TID PRN PO for SBP <100 Last administered on 12/05/18at 20:37; Admin Dose 10 MG; Start 12/04/18 at 08:30 Assessment/Plan Additional Assessment/Plan Rehab- Left MCA infarct cerebrovascular accident with right-sided weakness. Progress reviewed with patient and family. Anticipate home 12/13 Hypotension- improved Sinus bradycardia. Left carotid stenosis. Asthma. Dysphagia- improved MICHAEL VARGAS MD Dec 11, 2018 14:34
[2018-12-11 20:00] VITALS: RESP 18
[2018-12-11 20:19] VITALS: BP 102/62; PULSE 72; RESP 18
[2018-12-11 20:20] VITALS: RESP 18
[2018-12-11] MEDS: ATORVASTATIN 20 MG TAB PO SCH (21:00)
[2018-12-11] MEDS: SENNA TAB PO SCH (21:00)
[2018-12-12 02:00] VITALS: BP 108/65; PULSE 68; RESP 18
[2018-12-12 07:30] VITALS: BP 127/64; PULSE 64; RESP 18
[2018-12-12] MEDS: DOCUSATE SODIUM 100 MG CAP PO SCH ×2 (09:00→21:00)
[2018-12-12] MEDS: ASPIRIN 325 MG TAB PO SCH (09:13)
[2018-12-12] MEDS: CLOPIDOGREL 75 MG TAB PO SCH (09:13)
--- NOTE | 2018-12-12 12:27 | PN ---
Date/Time of Note Date/Time of Note DATE: 12/12/18 TIME: 12:27 Objective Vital Signs Date Temp Pulse Resp B/P (MAP) Pulse Ox O2 O2 Flow FiO2 Time Delivery Rate 12/12/18 98.1 64 18 127/64 98 Room Air 07:30 (85) Intake and Output 12/11/18 12/11/18 12/12/18 1515:00 23:00 07:00 IntakeIntake Total 100 ml 1200 ml 100 ml OutputOutput Total 600 ml BalanceBalance 100 ml 600 ml 100 ml Exam INTERDISCIPLINARY TEAM CONFERENCE Attended by PT, OT, ST, Business Analyst, Social Work, Rehabilitation Nursing, Position Classification Manager and Research And Evaluation ManagerAircraft Lay Out Worker Exam: Pulm- cta Abd-soft BOWEL- Cont BLADDER-Cont SKIN- intact OT- DRESSING- sba BATHING-sba TOILETING-sba PT- BED MOBILITY-s TRANSFERS-s AMBULATION-s 150 COGNITION-s A/P- Interdisciplinary team conference held today. Please see interdisciplinary sheet. Working toward d.c. on 12/13 with post discharge follow up of physical therapy, occupational therapy. Results/Medications Medications Current Medications Docusate Sodium (Colace) 100 mg BID PO Last administered on 12/08/18at 20:16; Admin Dose 100 MG; Start 11/29/18 at 21:00 Senna (Senokot) 1 tab HS PO Last administered on 12/10/18at 20:56; Admin Dose 1 TAB; Start 11/29/18 at 21:00 Magnesium Hydroxide (Milk Of Mag) 30 ml BID PRN PO CONSTIPATION; Start 11/29/18 at 18:30 Lactulose (Enulose) 20 gm DAILY PRN PO CONSTIPATION; Start 11/29/18 at 18:30 Bisacodyl (Dulcolax Supp) 10 mg DAILY PRN [place] CONSTIPATION; Start 11/29/18 at 18:30 Acetaminophen (Tylenol Tab) 650 mg Q4H PRN PO PAIN; Start 11/29/18 at 18:30 Aspirin (Aspirin) 325 mg DAILY PO Last administered on 12/12/18at 09:13; Admin Dose 325 MG; Start 11/30/18 at 09:00 Atorvastatin Calcium (Lipitor) 40 mg HS PO Last administered on 12/10/18at 20:56; Admin Dose 40 MG; Start 11/29/18 at 21:00 Clopidogrel Bisulfate (plaVIX) 75 mg DAILY PO Last administered on 12/12/18at 09:13; Admin Dose 75 MG; Start 11/30/18 at 09:00 Albuterol (Ventolin Hfa) 1 puff ONCE PRN INH WHEEZING; Start 11/29/18 at 19:00 Albuterol/ Ipratropium (Duoneb) 3 ml Q4H RESP THERAPY PRN HHN SHORTNESS OF BREATH; Start 11/30/18 at 06:30 Midodrine (Midodrine) 10 mg TID PRN PO for SBP <100 Last administered on 12/05/18at 20:37; Admin Dose 10 MG; Start 12/04/18 at 08:30 MICHAEL VARGAS MD Dec 12, 2018 12:27
[2018-12-12 14:00] VITALS: BP 122/70; PULSE 84; RESP 18
--- NOTE | 2018-12-12 15:18 | PN ---
Date/Time of Note Date/Time of Note DATE: 12/12/18 TIME: 15:17 Assessment/Plan VTE Prophylaxis Risk score (from [facility] [place])>0 risk: 3 SCD applied (from [facility] [place]): No SCD contraindicated: other Pharmacological prophylaxis: NA/contraindicated Pharm contraindication: low risk/ambulating, patient refusal Lines/Catheters IV Catheter Type (from [facility]): Peripheral IV Urinary Cath still in place: No Assessment/Plan Hospital Course SUBJECTIVE: no acute distress.. OBJECTIVE: Vital signs-see below PHYSICAL EXAM: Constitutional: Adequately built,not in acute distress. HEENT: Head atraumatic and normocephalic. Eyes: Extraocular muscles intact. Anicteric sclerae. Pupils equal bilaterally, reactive to light. NECK: Supple without lymph node. CHEST: Clear and good breath sounds equally. No wheezing. No rhonchi. HEART: S1, S2. Regular rate and rhythm. ABDOMEN: Slight tenderness to suprapubic area. Soft/non tender with no rebound tenderness. Bowel sounds were present. EXTREMITIES: No cyanosis, clubbing or edema. NEUROLOGIC: Alert and oriented x3. No focal deficit. No sensory deficit. PSYCHOSOCIAL: No signs of depression. INTEGUMENTARY: No open wounds. ASSESSMENT AND PLAN:63-year-old male past medical history recent stroke on November 24, 2018 transferred to acute rehab for rehabilitation. Status post CVA -pt w/ Rt-sided weakness -Status post stent and thrombectomy performed for left ICA and MCA blockage. -cont. DAPT/statin -Continue rehab as coordinated by the acute rehab team including any physical therapy, occupational therapy, and other Orthostatic hypotension -Improved -Avoid antihypertensives -PRN midodrine Urinary tract infection -treated w.a course of cipro Asthma -No present issues -DuoNebs as needed Hepatitis C -Outpatient GI follow-up Dyslipidemia -On statin therapy DVT prophylaxis:SCDs/Ambulation. Patient refused chemical anticoagulation Patient with Dr. Claudio Exam/Review of Systems Exam Vitals Vital Signs Date Temp Pulse Resp B/P (MAP) Pulse Ox O2 O2 Flow FiO2 Time Delivery Rate 12/12/18 98.1 64 18 127/64 98 Room Air 07:30 (85) Intake and Output 12/11/18 12/11/18 12/12/18 1515:00 23:00 07:00 IntakeIntake Total 100 ml 1200 ml 100 ml OutputOutput Total 600 ml BalanceBalance 100 ml 600 ml 100 ml Medications Medication Current Medications Docusate Sodium (Colace) 100 mg BID PO Last administered on 12/08/18 20:16; Admin Dose 100 MG; Start 11/29/18 at 21:00 Senna (Senokot) 1 tab HS PO Last administered on 12/10/18 20:56; Admin Dose 1 TAB; Start 11/29/18 at 21:00 Magnesium Hydroxide (Milk Of Mag) 30 ml BID PRN PO CONSTIPATION; Start 11/29/18 at 18:30 Lactulose (Enulose) 20 gm DAILY PRN PO CONSTIPATION; Start 11/29/18 at 18:30 Bisacodyl (Dulcolax Supp) 10 mg DAILY PRN [place] CONSTIPATION; Start 11/29/18 at 18:30 Acetaminophen (Tylenol Tab) 650 mg Q4H PRN PO PAIN; Start 11/29/18 at 18:30 Aspirin (Aspirin) 325 mg DAILY PO Last administered on 12/12/18 09:13; Admin Dose 325 MG; Start 11/30/18 at 09:00 Atorvastatin Calcium (Lipitor) 40 mg HS PO Last administered on 12/10/18 20:56; Admin Dose 40 MG; Start 11/29/18 at 21:00 Clopidogrel Bisulfate (plaVIX) 75 mg DAILY PO Last administered on 12/12/18 09:13; Admin Dose 75 MG; Start 11/30/18 at 09:00 Albuterol (Ventolin Hfa) 1 puff ONCE PRN INH WHEEZING; Start 11/29/18 at 19:00 Albuterol/ Ipratropium (Duoneb) 3 ml Q4H RESP THERAPY PRN HHN SHORTNESS OF BREATH; Start 11/30/18 at 06:30 Midodrine (Midodrine) 10 mg TID PRN PO for SBP <100 Last administered on 12/05/18at 20:37; Admin Dose 10 MG; Start 12/04/18 at 08:30 AC RAE NP Dec 12, 2018 15:18
[2018-12-12 19:41] VITALS: PULSE 72; RESP 19
[2018-12-12] MEDS: ATORVASTATIN 20 MG TAB PO SCH (21:00)
[2018-12-12] MEDS: SENNA TAB PO SCH (21:00)
[2018-12-12 21:04] VITALS: BP 104/54; PULSE 72; RESP 18
[2018-12-13 02:50] VITALS: BP 106/54; PULSE 60; RESP 19
[2018-12-13 07:30] VITALS: BP 118/62; PULSE 74; RESP 18
[2018-12-13] MEDS: DOCUSATE SODIUM 100 MG CAP PO SCH (09:41)
[2018-12-13] MEDS: CLOPIDOGREL 75 MG TAB PO SCH (09:41)
[2018-12-13] MEDS: ASPIRIN 325 MG TAB PO SCH (09:41)
--- NOTE | 2018-12-13 14:01 | PN ---
Date/Time of Note Date/Time of Note DATE: 12/13/18 TIME: 14:00 Assessment/Plan VTE Prophylaxis Risk score (from [facility])>0 risk: 3 [place] applied [place] [facility] [place] SCD contraindicated: other Pharmacological prophylaxis: NA/contraindicated Pharm contraindication: low risk/ambulating Lines/Catheters IV Catheter Type (from [facility]): Peripheral IV Urinary Cath still in place: No Assessment/Plan Hospital Course SUBJECTIVE: for discharge today OBJECTIVE: Vital signs-see below PHYSICAL EXAM: Constitutional: Adequately built,not in acute distress. HEENT: Head atraumatic and normocephalic. Eyes: Extraocular muscles intact. Anicteric sclerae. Pupils equal bilaterally, reactive to light. NECK: Supple without lymph node. CHEST: Clear and good breath sounds equally. No wheezing. No rhonchi. HEART: S1, S2. Regular rate and rhythm. ABDOMEN: Slight tenderness to suprapubic area. Soft/non tender with no rebound tenderness. Bowel sounds were present. EXTREMITIES: No cyanosis, clubbing or edema. NEUROLOGIC: Alert and oriented x3. No focal deficit. No sensory deficit. PSYCHOSOCIAL: No signs of depression. INTEGUMENTARY: No open wounds. ASSESSMENT AND PLAN:63-year-old male past medical history recent stroke on November 24, 2018 transferred to acute rehab for rehabilitation. Status post CVA -pt w/ Rt-sided weakness -Status post stent and thrombectomy performed for left ICA and MCA blockage. -cont. DAPT/statin -Continue rehab as coordinated by the acute rehab team including any physical therapy, occupational therapy, and other Orthostatic hypotension -Improved -Avoid antihypertensives -PRN midodrine Urinary tract infection -treated w.a course of cipro Asthma -No present issues -DuoNebs as needed Hepatitis C -Outpatient GI follow-up Dyslipidemia -On statin therapy DVT prophylaxis:SCDs/Ambulation. Agree w/dc plan on current meds. Patient with Dr. Claudio Exam/Review of Systems Exam Vitals Vital Signs Date Temp Pulse Resp B/P (MAP) Pulse Ox O2 O2 Flow FiO2 Time Delivery Rate 12/13/18 98.3 74 18 118/62 97 Room Air 07:30 (80) Intake and Output 12/12/18 12/12/18 12/13/18 1414:59 22:59 06:59 IntakeIntake Total 950 ml 1920 ml OutputOutput Total 200 ml 900 ml BalanceBalance 950 ml 1720 ml -900 ml AC RAE V. [employer]ER Dec 13, 2018 14:01
--- NOTE | 2018-12-13 15:04 | DS ---
Date/Time of Note Date/Time of Note DATE: 12/13/18 TIME: 15:03 Discharge Summary Admission/Discharge Info Admit Date/Time Nov 29, 2018 at 17:21 Discharge Date/Time Dec 13, 2018 at 12:41 Discharge Diagnosis 1. 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 2. Sinus bradycardia, improved 3. Left carotid stenosis. 4. Asthma. 5. Dysphagia. 6. Improvements in self-care, mobility and cognition. Patient Condition: Good Hospital Course The patient was admitted for comprehensive interdisciplinary rehabilitation and made steady functional gains from a Mod level to a S level for self care tasks and mobility including ambulating over 150 feet with the use of a FWW. Patient is being discharged home with the recommendation of home health PT, OT and RN follow up. The DC meds are per the medication reconciliation sheet. The discharge equipment recommendations include: FWW, BSC, shower chair. The patient will follow up with PMD upon DC. Primary Care Provider Not On Staff MICHAEL Caal MD Dec 13, 2018 15:04
== END 2018-12-13 12:41 | disposition home health service (06) | DRG 56 ==
LOC: VRC 17:21
PROVIDERS: ADMIT Internal Medicine Pulmonary Disease; ATTEND Internal Medicine Pulmonary Disease
PROC: F07Z5ZZ Bed Mobility Treatment (ICD-10-PCS; principal; 2018-11-30)
PROC: F07Z8ZZ Transfer Training Treatment (ICD-10-PCS; 2018-11-30)
PROC: F07Z9ZZ Gait Training/Functional Ambulation Treatment (ICD-10-PCS; 2018-11-30)
PROC: F08Z2ZZ Grooming/Personal Hygiene Treatment (ICD-10-PCS; 2018-11-30)
PROC: F08Z1ZZ Dressing Techniques Treatment (ICD-10-PCS; 2018-11-30)
PROC: F08Z0ZZ Bathing/Showering Techniques Treatment (ICD-10-PCS; 2018-11-30)
PROC: F06ZDZZ Swallowing Dysfunction Treatment (ICD-10-PCS; 2018-11-30)
DX: I69.351 Hemiplegia and hemiparesis following cerebral infarction affecting right dominant side (principal); I63.512 Cerebral infarction due to unspecified occlusion or stenosis of left middle cerebral artery; N39.0 Urinary tract infection, site not specified; E78.5 Hyperlipidemia, unspecified; I95.1 Orthostatic hypotension; I65.22 Occlusion and stenosis of left carotid artery; J45.40 Moderate persistent asthma, uncomplicated; I69.391 Dysphagia following cerebral infarction; R13.10 Dysphagia, unspecified; R00.1 Bradycardia, unspecified; R33.9 Retention of urine, unspecified; B95.2 Enterococcus as the cause of diseases classified elsewhere; B19.20 Unspecified viral hepatitis C without hepatic coma; Z74.09 Other reduced mobility; Z95.828 Presence of other vascular implants and grafts
CPT/HCPCS: 80053; 81003; 82533; 85025; 86592; 86803; 87081; 87086; 92507; 92523; 92526; 92610; 97110; 97112; 97116; 97163; 97167; 97530; 97535; 97542; J1650; J7040